=== PATIENT | male | born 1950 | race Caucasian/White ===

== ENCOUNTER 2020-06-15 19:23 | Inpatient (IN) | payer MEDICARE, SELFPAY ==
--- NOTE | 2020-07-14 00:06 | PDOC.HHP ---
Hospitalist HPI - History of Present Illness Shortness of breath History of Present Illness: Mr. Johnson is a 68-year-old male with a past medical history of hypertension, hyperlipidemia, type 2 diabetes mellitus, hypothyroidism, Covid pneumonia who presents for shortness of breath. Patient was recently admitted for COVID-19 pneumonia from June 15 through June 25 and was discharged on home oxygen. Patient reports that initially after his discharge he was doing well, however as he started to do more and more in the past few days activity smith he developed worsening shortness of breath and had to increase his oxygen level. He denies chest pain, fever, chills, myalgias. He states he otherwise feels fine. 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 In the emergency room at [place] initial vital signs 116/76, 70, 20, 94% on 3 L oxygen. Patient was initially 82% on room air. White blood cell count 8.3. Lactic acid 1.7. D-dimer elevated at 2.64. Troponin 0 0.001, BNP 17.1. Patient underwent CTA which was negative for PE but did show parenchymal disease consistent with COVID-19 pneumonia. Chest x-ray showed bilateral patchy infil trates also consistent with COVID-19 pneumonia. LFTs elevated 51/78, 168. Patient received Levaquin, Lovenox, cefepime, dexamethasone, aspirin at outside hospital. Patient transferred to [facility] for further treatment of his persistent Covid hypoxia. Hospitalist ROS - Review of Systems Constitutional: denies: fever, chills, sweats, weakness, malaise, other Eyes: denies: pain, vision change, conjunctivae inflammation, eyelid inflammation, redness, other ENT: denies: ear pain, ear discharge, nose pain, nose discharge, nose congestion, mouth pain, mouth swelling, throat pain, throat swelling, other Respiratory: reports: shortness of breath, SOB with excertion. denies: cough, dry, hemoptysis, pleuritic pain, sputum, wheezing, other Cardiovascular: denies: chest pain, palpitations, orthopnea, paroxysmal noc. dy spnea, edema, light headedness, other Gastrointestinal: denies: nausea, vomiting, abdominal pain, diarrhea, constipation, melena, hematochezia, other Genitourinary: denies: dysuria, frequency, incontinence, hematuria, retention, other Musculoskeletal: denies: neck pain, shoulder pain, arm pain, back pain, hand pain, leg pain, foot pain, other Skin: denies: rash, lesions, benjamin, bruising, other Neurological: denies: weakness, numbness, incoordination, change in speech, con fusion, seizures, other - Medication Medications: Home medications include Losartan hydrochlorothiazide Levothyroxine Aspirin Albuterol Oxygen Allergies to naproxen and lisinopril Hospitalist History - Past Medical History Other Medical History: Past medical history includes Hypertension Hyperlipidemia Hypothyroidism COVID-19 pneumonia infection Type 2 diabetes mellitus - Past Surgical History Other Surgical History: Past surgical history includes Tonsillectomy Cholecystectomy Knee injury repair - Family History Other Family History: Denies family history of cardiac or respiratory disease - Social History Smoking Status: Never smoker Alcohol: reports: None Drugs: reports: none Living Situation: With Family Activity level: independent ambulation - Exam General Appearance: NAD, awake alert General - other findings: Comfortable on 4 L nasal cannula Eye: PERRL, anicteric sclera ENT: normocephalic atraumatic, no oropharyngeal lesions, moist mucosa Neck: supple, symmetric, no JVD, no thyromegaly, no lymphadenopathy, no carotid bruit Heart: RRR, no murmur, no gallops, no rubs, normal peripheral pulses Respiratory: no wheezes, normal chest expansion, no tachypnea, normal percussion Respiratory - other findings: Rales at bases Gastrointestinal: soft, non-tender, non-distended, normal bowel sounds, no palpable masses, no hepatomegaly, no splenomegaly, no bruit Extremities: no cyanosis, no clubbing, no edema Skin: normal turgor, no lesions, no rashes Neurological: cranial nerve grossly intact, normal sensation to touch, no weakness, no focal deficits, no new deficit Musculoskeletal: normal tone, normal strength, no muscle wasting Psychiatric: normal affect, normal behavior, A&O x 3 Hospitalist H&P A/P - Plan Plan: Persistent hypoxia due to COVID-19 pneumonia 68-year-old male with past medical history of hypertension, hyperlipidemia, hypothyroidism with lingering COVID-19 pneumonia and hypoxia. Patient admitted June 15 through June 25 for Covid pneumonia and sent home on oxygen, however he presents for worsening hypoxia and shortness of breath. Chest x-ray stable from prior shows findings consistent with COVID-19 pneumonia as does CTA which was negative for PE. Patient's D-dimer elevated at 2.64. Lactic acid 1.7, WBC 8.3. 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 Question component of pneumonitis versus persistent hypoxia due to lingering COVID-19 pneumonia. Since it has been more than 10 days of symptom onset patient is no longer infectious and is no longer needs to continue airborne isolation. Plan Ceftriaxone, Azithromycin for question superimposed bacterial infection Continue dexamethasone Continue supplemental oxygen as needed -Trend inflammatory markers Consider ID or pulmonary consult Acute on chronic respiratory failure with hypoxia Patient with acute on chronic hypoxic respiratory failure secondary to moderate to severe COVID-19 pneumonia. Patient with worsening oxygen requirement now on 4 L of oxygen nasal cannula to maintain O2 sat. We will continue supplemental oxygen and closely monitor respiratory status. Treatment as above. Plan -Supplemental oxygen -Treatment as above -Closely monitor respiratory status Elevated LFTs LFTs elevated 51/178, alk phos 168. On review of records previously elevated. Suspect mild elevation in setting of COVID, however would have expected LFTs to have improved by now. Will obtain RUQUS and heptatitis panel. Plan -RUQUS -Hepatitis panel Hypertension Continue home medication Type 2 diabetes mellitus Patient on Metformin, however denies diabetes. Will hold Metformin and place on a [facility] glucose checks for now. Hypothyroidism Continue home levothyroxine once dosage confirmed DVT prophylaxisLovenox Full code MDM is patient's Case discussed with attending physician Dr. Schulz.
[2020-07-14] MEDS ORDERED: Acetaminophen 325 MG TAB PO PRN (00:13)
[2020-07-14] MEDS ORDERED: Acetaminophen 650 MG Suppository PR PRN (00:13)
[2020-07-14] MEDS ORDERED: Albuterol 200 PUFF (6.7GM INHALER) INH PRN (00:16)
[2020-07-14] MEDS ORDERED: Dextrose 5% in Water 1,000 ML IV PRN (00:16)
[2020-07-14] MEDS ORDERED: Dextrose 50% Abboject 50 ML SYRINGE SLOW IVP PRN (00:16)
[2020-07-14] MEDS ORDERED: cefTRIAXone\\ROCEPHIN 1 GM in Sodium Chloride 0.9% 100 ML IVPB SCH (01:00)
[2020-07-14] MEDS ORDERED: Azithromycin 500 MG in Sodium Chloride 0.9% 250 ML 250 ML IVPB SCH (02:00)
[2020-07-14 05:10] LABS: %Neutrophils 79.6 % (42.0-75.0); Hemoglobin 11.4 g/dL (14.0-18.0); Mean Corpuscular HGB CONC 32.5 g/dL (32.0-36.0); Mean Corpuscular Hemoglobin 30.8 pg (27.0-31.0); Mean Corpuscular Volume 94.8 fL (78.0-98.0); Platelet Count 278 thou/uL (130-400); RBC Distribution Width 12.3 % (11.5-14.5); White Blood Cell (WBC) Count 9.6 thou/uL (4.8-10.8)
[2020-07-14 05:11] LABS: #Eosinphils 0.1 thou/uL (0.0-0.7); #Lymphocytes 1.3 thou/uL (1.20-3.40); #Monocytes 0.6 thou/uL (0.11-0.59); #Neutrophils 7.7 thou/uL (1.40-6.50); %Basophils 0.2 % (0.0-1.0); %Eosinophils 0.7 % (0.0-10.0); %Lymphocytes 13.9 % (21.0-51.0); %Monocytes 5.7 % (0.0-10.0)
[2020-07-14] MEDS: Levothyroxine Sodium 100 MCG TAB PO SCH (05:24)
[2020-07-14 05:31] LABS: Anion Gap 13 mmol/L (10-20); BUN (Urea Nitrogen) 19 mg/dL (8.4-25.7); Calc. Creatinine Clearance 134 mL/min (70-130); Calcium 8.8 mg/dL (7.8-10.44); Carbon Dioxide 23 mmol/L (23-31); Chloride 105 mmol/L (98-107); Glucose 184 mg/dL (80-115); Potassium 3.6 mmol/L (3.5-5.1); Sodium 137 mmol/L (136-145)
[2020-07-14 05:35] LABS: Troponin I Less than 0.010 ng/mL (< 0.028)
[2020-07-14] MEDS: Guaifenesin DM 100-10/5 ML UDCUP PO PRN ×2 (06:01→20:05)
--- NOTE | 2020-07-14 07:34 | ULT ---
Ultrasound of [facility] upper quadrant: 07/14/2020 COMPARISON:None available HISTORY:Transaminitis TECHNIQUE: Multiplanar grayscale sonographic imaging of [facility] upper quadrant provided FINDINGS:Limited assessment of the pancreas secondary to obscuration by bowel gas. The hepatic parenchyma is heterogeneous and echogenic, limiting detailed assessment. Findings may be related to steatosis. Right kidney measures 11.5 cm in craniocaudal dimension and demonstrates no evidence for stone, hydro nephrosis, or mass. Cholecystectomy clips are noted on CT angiogram of the chest performed 07/13/2020. There are areas of increased echogenicity with shadowing within the gallbladder fossa suggesting shadowing from the postoperative clips and/or a calcified lesion within or adjacent to the liver in this region. The CT angiogram of the chest performed 07/13/2020 demonstrates a partially visualized rim calcified structure in the region of the gallbladder fossa which is not fully assessed on this exam or on the p rior CT. 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 The common bile duct measures 4 mm, within normal l imits. IMPRESSION:Areas of increased echogenicity with shadowing in the gallbladder fossa. The patient is st atus post cholecystectomy. This shadowing may be associated with postoperative clips as well as a rim calcified lesion which should be further assessed with CT of the abdomen with and without contras t using a hepatic mass protocol CODE T
[2020-07-14] MEDS ORDERED: FLU VACC QS2020-21(65YR UP)/PF 240 MCG/0.7 ML SYRINGE IM ONE (09:00)
[2020-07-14] MEDS: Enoxaparin Sodium 40 MG/0.4 ML SYRINGE SC SCH ×2 (09:02→20:05)
[2020-07-14] MEDS: Aspirin 325 mg Enteric Coated Tablet PO SCH (09:03)
[2020-07-14] MEDS: Losartan 25 MG TAB PO SCH (09:03)
[2020-07-14] MEDS: Hydrochlorothiazide 25 MG TAB PO SCH (09:03)
[2020-07-14] MEDS: Dexamethasone 4 MG TAB PO SCH (09:04)
--- NOTE | 2020-07-14 14:24 | PDOC.HOSPP ---
- Subjective Encounter Date: 07/14/20 Encounter Time: 11:30 Subjective: is on 3 lts nc and comfortable eating well, is amb in room (gets exertional sob easily) - Objective Vital Signs & Weight: Vital Signs (12 hours) Temp Pulse Resp BP Pulse Ox 07/14/20 10:57 97.7 F 73 20 99/55 L 93 L 07/14/20 07:22 97.9 F 65 18 110/65 95 07/14/20 04:13 97.9 F 70 17 109/56 L 92 L Weight Weight 221 lb 12.8 oz Result Diagrams: 07/14/20 04:55 07/14/20 04:55 Additional Labs: Accuchecks 07/14/20 07/14/20 10:55 01:26 POC Glucose 102 H 159 H Hospitalist ROS - Medication Medications: Active Medications Generic Name Dose Route Start Last Admin Trade Name Freq PRN Reason Stop Dose Admin Aspirin 325 mg 07/14/20 09:00 07/14/20 09:03 Aspirin 325 Mg Enteric Coated Tablet PO 325 mg DAILY DONNIE Administration Dexamethasone 6 mg 07/14/20 08:00 07/14/20 09:04 Dexamethasone 4 Mg Tab PO 6 mg QAM-WM DONNIE Administration Enoxaparin Sodium 40 mg 07/14/20 09:00 07/14/20 09:02 Enoxaparin Sodium 40 Mg/0.4 Ml Syringe SC 40 mg 0900,2100 DONNIE Administration Guaifenesin/Dextromethorphan 15 ml 07/14/20 00:13 07/14/20 06:01 Guaifenesin Dm 100-10/5 Ml Udcup PO 15 ml Q4H PRN Administration Cough Hydrochlorothiazide 25 mg 07/14/20 09:00 07/14/20 09:03 Hydrochlorothiazide 25 Mg Tab PO 25 mg DAILY DONNIE Administration Ceftriaxone Sodium 1 gm/ 100 mls @ 200 mls/hr 07/14/20 01:00 07/14/20 01:35 Sodium Chloride IVPB 100 mls 0100 DONNIE Administration Azithromycin 500 mg/ Sodium 250 mls @ 250 mls/hr 07/14/20 02:00 07/14/20 02:27 Chloride IVPB 250 mls 0200 DONNIE Administration Levothyroxine Sodium 100 mcg 07/14/20 06:00 07/14/20 05:24 Levothyroxine Sodium 100 Mcg Tab PO 100 mcg 0600 DONNIE Administration Losartan Potassium 100 mg 07/14/20 09:00 07/14/20 09:03 Losartan 25 Mg Tab PO 100 mg DAILY DONNIE Administration Sodium Chloride 10 ml 07/14/20 00:13 07/14/20 01:35 Flush - Normal Saline 10 Ml Syringe IVF 10 ml PRN PRN Administration Saline Flush - Exam General Appearance: awake alert Eye: PERRL, anicteric sclera ENT: no oropharyngeal lesions, moist mucosa Neck: supple, no JVD Heart: RRR, no murmur Respiratory: no wheezes, rales, rhonchi Gastrointestinal: soft, non-tender, non-distended, normal bowel sounds Extremities: no cyanosis, no edema Neurological: cranial nerve grossly intact, no focal deficits Psychiatric: normal affect, A&O x 3 Hosp A/P (1) Pneumonia due to COVID-19 virus Code(s): U07.1 - COVID-19; J12.89 - OTHER VIRAL PNEUMONIA Status: Acute (2) Acute respiratory failure with hypoxia Code(s): J96.01 - ACUTE RESPIRATORY FAILURE WITH HYPOXIA Status: Acute (3) HTN (hypertension) Code(s): I10 - ESSENTIAL (PRIMARY) HYPERTENSION Status: Chronic Qualifiers: Hypertension type: essential hypertension Qualified Code(s): I10 - E ssential (primary) hypertension (4) DM type 2 (diabetes mellitus, type 2) Status: Chronic Qualifiers: Diabetes mellitus supervisor intermediates insulin use: without supervisor intermediates use (5) Hypothyroidism Code(s): E03.9 - HYPOTHYROIDISM, UNSPECIFIED Status: Chronic Qualifiers: Hypothyroidism type: acquired Qualified Code(s): E03.9 - Hypothyroidism, unspecified - Plan is on 3 lts NC, dexamethasone. Was hospitalized here for covid pna from jun 15 - , consult is on ceftriaxone and zithromax, nebs crp is 8, ferritin is 2200 on asp, cozaar, hctz, synthroid, lovenox 40mg sc q12h has severe infiltrates on cxr he has 2 medical record numbers and the [facility] records need to be fixed
--- NOTE | 2020-07-14 18:51 | CON ---
DATE OF CONSULTATION: 07/14/2020 REASON FOR CONSULTATION: Readmission after recent COVID-19 treatment in the hospital. HISTORY OF PRESENT ILLNESS: A 70-year-old patient who has a history of hypertension and hypothyroidism and was admitted on 06/15 complaining of cough and congestion for 14 days, 2 weeks before he tested negative. His had tested positive. On arrival, he was feeling relatively well other than cough and fatigue. His BP was normal, his T-max 99.2, and O2 saturations were 89% on room air. He had a chest x-ray, which showed bilateral diffuse infiltrates. He had a CT from [facility], which showed COVID type pneumonia. I do not have the results of that CT here. He was given remdesivir and Decadron and he remained about 10 days in the hospital, eventually was discharged to finish his Decadron course on oxygen supplementation 2 L at home. He acknowledges that after a while stopped using oxygen during the daytime, only using at nighttime to sleep and he has a pulse oximeter at home and had measured it a few times, and according to him, it went down to 88 to 87 while his 's oximetry concomitantly was 97. So, he really developed significant hypoxemia without oxygen supplementation. For some reason, he just kept not using oxygen supplementation during the daytime and basically he got fatigued and short of breath and ended up in the [place] [facility] where he was found to be obviously hypoxemic and dyspneic. He had a CT, which showed diffuse bilateral infiltrates, which probably had been present all along and his BP was 101/56, temperature 98, and O2 saturation was 93 on 3 L of oxygen supplementation, so he was put in the hospital and he is currently receiving azithromycin, albuterol, ceftriaxone, Decadron, levothyroxine, losartan, and mometasone. Mr. Stover is awake in bed, he does not appear to be in distress. Sometimes he will start coughing intermittently and gets a little bit tachypneic, but most of the time he is in no respiratory distress and feeling comfortable at rest. He denies headaches. No sore throat, odynophagia, or dysphagia. No sputum production. No nasal symptoms. No abdominal pain or diarrhea. No genitourinary symptoms. No chest pain. No joint symptoms or skin disorder. PAST MEDICAL HISTORY: 1. Hypertension. 2. Hypothyroidism. 3. COVID-19, diagnosed beginning of June and with a 10-day hospital stay where he got remdesivir and Decadron. 4. He also has a history of hyperlipidemia. 5. Type 2 diabetes. SURGICAL HISTORY: 1. Tonsillectomy. 2. Cholecystectomy. 3. Knee injury repair. FAMILY HISTORY: Noncontributory except for COVID-19 in the . SOCIAL HISTORY: Never smoker. He lives in [place] in a farm. Does not drink. MEDICATIONS: He is currently on Rocephin. PHYSICAL EXAMINATION: VITAL SIGNS: Current vital signs; he has been afebrile, saturating 95 on 3 L, 94 to 95 after coughing and standing up, sometimes goes down to 92, but most of the time will stay around 94. His BP 107/61. He is breathing about 18 times a minute. SKIN: Normal. No lymphadenopathy. HEENT: Normal. LUNGS: With scattered inspiratory crackles. HEART: S1 and S2. Regular rate. ABDOMEN: Soft, not distended or tender. No ascites. No bladder distention. EXTREMITIES: No joint inflammatory activity. NEUROLOGIC: Nonfocal. LABORATORY DATA: WBC count 9.6, hemoglobin 11.4, platelets 278, and 79% neutrophils. Creatinine 0.77. LDH 315. CRP 8.47. Ferritin is 2100. He had abdominal ultrasound done, not clear reason for it because the patient denies any pain in the abdominal area. The abdomen ultrasound is not particularly remarkable. ASSESSMENT: 1. Hypertension. 2. Hyperlipidemia. 3. Type 2 diabetes. 4. COVID-19, treated recently during 10 days in the hospital with remdesivir and Decadron, now with persistence of hypoxemia and a CT showing diffuse bilateral pneumonitis or pneumonia with what is the aftermath of the recent COVID-19 pneumonia. DISCUSSION: The most likely scenario here is that the patient has what is called the aftermath of the COVID-infection and SARS-CoV-2 infection with diffuse organizing pneumonia and the problem is that the patient was not clearly instructed to continue using oxygen 24 hours a day until told not to do so according to results of challenges and measurement of oximetry. Obviously, his oximetry was not adequate at home and he still kept not using oxygen, which led to decompensation that prompted readmission. I do not think he has any need for Rocephin or azithromycin. We may continue the Decadron a little longer, but probably he is just going to need time for this to resolve and he is going to have to be wearing oxygen 24 hours a day until this improves further. It may take a month or 2 as a matter of fact. The titration of the oxygen supplementation at home will have to be carried out under supervision of a physician rather than on his own account. The other possibilities would be cardiomyopathy and we will go ahead and check his echocardiogram and thromboembolism has been ruled out. Job ID: [id number]
[2020-07-14] MEDS: Mometasone 200 MCG/Formoterol 5 MCG 120 PUFF INHALER INH SCH (22:12)
[2020-07-15] MEDS: Levothyroxine Sodium 100 MCG TAB PO SCH (05:59)
[2020-07-15 06:34] LABS: #Basophils 0.1 thou/uL (0.0-0.2); #Eosinphils 0.2 thou/uL (0.0-0.7); #Lymphocytes 2.1 thou/uL (1.20-3.40); #Monocytes 0.9 thou/uL (0.11-0.59); #Neutrophils 8.7 thou/uL (1.40-6.50); %Basophils 0.5 % (0.0-1.0); %Eosinophils 1.5 % (0.0-10.0); %Monocytes 7.5 % (0.0-10.0); %Neutrophils 72.5 % (42.0-75.0); Hemoglobin 11.8 g/dL (14.0-18.0); Mean Corpuscular HGB CONC 33.8 g/dL (32.0-36.0); Mean Corpuscular Hemoglobin 32.3 pg (27.0-31.0); Mean Corpuscular Volume 95.6 fL (78.0-98.0); Mean Platelet Volume 6.8 fL (7.4-10.4); Platelet Count 314 thou/uL (130-400); RBC Distribution Width 12.4 % (11.5-14.5); Red Blood Cell (RBC) Count 3.64 mill/uL (4.70-6.10); White Blood Cell (WBC) Count 11.9 thou/uL (4.8-10.8)
[2020-07-15 06:54] LABS: Anion Gap 15 mmol/L (10-20); BUN (Urea Nitrogen) 20 mg/dL (8.4-25.7); Calc. Creatinine Clearance 124 mL/min (70-130); Calcium 9.3 mg/dL (7.8-10.44); Carbon Dioxide 26 mmol/L (23-31); Chloride 103 mmol/L (98-107); Glucose 96 mg/dL (80-115); Potassium 3.9 mmol/L (3.5-5.1); Sodium 140 mmol/L (136-145)
[2020-07-15] MEDS: Dexamethasone 4 MG TAB PO SCH (08:35)
[2020-07-15] MEDS: Hydrochlorothiazide 25 MG TAB PO SCH (08:36)
[2020-07-15] MEDS: Losartan 25 MG TAB PO SCH (08:36)
[2020-07-15] MEDS: Aspirin 325 mg Enteric Coated Tablet PO SCH (08:36)
[2020-07-15] MEDS: Enoxaparin Sodium 40 MG/0.4 ML SYRINGE SC SCH ×2 (08:37→20:51)
[2020-07-15] MEDS: Mometasone 200 MCG/Formoterol 5 MCG 120 PUFF INHALER INH SCH ×2 (08:37→18:30)
--- NOTE | 2020-07-15 14:36 | PDOC.HOSPP ---
- Subjective Encounter Date: 07/15/20 Encounter Time: 12:00 Subjective: no new complaints, is on 3 lts nc and comfortable gets sob on minimal exertion - Objective Vital Signs & Weight: Vital Signs (12 hours) Temp Pulse Resp BP BP Pulse Ox 07/15/20 12:05 98.3 F 66 16 102/65 95 07/15/20 08:30 95 07/15/20 07:10 97.9 F 57 L 16 130/83 95 07/15/20 06:02 94 L 07/15/20 04:00 97.6 F 70 20 112/75 94 L 07/15/20 02:46 96 Weight Weight 221 lb 12.8 oz I&O: 07/14/20 07/15/20 07/16/20 06:59 06:59 06:59 Intake Total 1080 Balance 1080 Result Diagrams: 07/15/20 06:27 07/15/20 06:27 Additional Labs: Accuchecks 07/14/20 16:43 POC Glucose 137 H Hospitalist ROS - Medication Medications: Active Medications Generic Name Dose Route Start Last Admin Trade Name Freq PRN Reason Stop Dose Admin Aspirin 325 mg 07/14/20 09:00 07/15/20 08:36 Aspirin 325 Mg Enteric Coated Tablet PO 325 mg DAILY DONNIE Administration Enoxaparin Sodium 40 mg 07/14/20 09:00 07/15/20 08:37 Enoxaparin Sodium 40 Mg/0.4 Ml Syringe SC 40 mg 0900,2100 DONNIE Administration Guaifenesin/Dextromethorphan 15 ml 07/14/20 00:13 07/14/20 20:05 Guaifenesin Dm 100-10/5 Ml Udcup PO 15 ml Q4H PRN Administration Cough Hydrochlorothiazide 25 mg 07/14/20 09:00 07/15/20 08:36 Hydrochlorothiazide 25 Mg Tab PO 25 mg DAILY DONNIE Administration Levothyroxine Sodium 100 mcg 07/14/20 06:00 07/15/20 05:59 Levothyroxine Sodium 100 Mcg Tab PO 100 mcg 0600 DONNIE Administration Losartan Potassium 100 mg 07/14/20 09:00 07/15/20 08:36 Losartan 25 Mg Tab PO 100 mg DAILY DONNIE Administration Mometasone Furoate/Formoterol Fumar 2 puff 07/14/20 18:30 07/15/20 08:37 Mometasone 200 Mcg/Formoterol 5 Mcg 120 Puff Inhaler INH 2 puff BID-RT DONNIE Administration Sodium Chloride 10 ml 07/14/20 00:13 07/14/20 01:35 Flush - Normal Saline 10 Ml Syringe IVF 10 ml PRN PRN Administration Saline Flush - Exam General Appearance: awake alert Eye: PERRL, anicteric sclera ENT: no oropharyngeal lesions, moist mucosa Neck: supple, no JVD Heart: RRR, no murmur Respiratory: no wheezes, rales, rhonchi Gastrointestinal: soft, non-tender, non-distended, normal bowel sounds Extremities: no cyanosis, no edema Neurological: cranial nerve grossly intact, no focal deficits Psychiatric: normal affect, A&O x 3 Hosp A/P (1) Pneumonia due to COVID-19 virus Code(s): U07.1 - COVID-19; J12.89 - OTHER VIRAL PNEUMONIA Status: Acute (2) Acute respiratory failure with hypoxia Code(s): J96.01 - ACUTE RESPIRATORY FAILURE WITH HYPOXIA Status: Acute (3) HTN (hypertension) Code(s): I10 - ESSENTIAL (PRIMARY) HYPERTENSION Status: Chronic Qualifiers: Hypertension type: essential hypertension Qualified Code(s): I10 - Essential (primary) hypertension (4) DM type 2 (diabetes mellitus, type 2) Status: Chronic Qualifiers: Diabetes mellitus ferry terminal supervisor insulin use: without [facility] use (5) Hypothyroidism Code(s): E03.9 - HYPOTHYROIDISM, UNSPECIFIED Status: Chronic Qualifiers: Hypothyroidism type: acquired Qualified Code(s): E03.9 - Hypothyroidism, unspecified - Plan is on 3 lts NC, dexamethasone. Was hospitalized here for covid pna from jun 15 - and got remdesivir. crp is 8, ferritin is 2200 on asp, cozaar, hctz, synthroid, lovenox 40mg sc q12h has severe infiltrates on cxr he has 2 medical record numbers and the [facility] records need to be fixed echo, dc plan in am if stable on 3 lts NC he needs close f/u with PCP and I have discussed with over phone and gave full updates on 07/14, 07/2020.
--- NOTE | 2020-07-15 14:59 | CON ---
DATE OF CONSULTATION: HISTORY OF PRESENT ILLNESS: A 70-year-old gentleman was recently discharged from the hospital, prolonged hospitalization with sahu positive pneumonia. He now presents with worsening shortness of breath and cough. His sats in the ER were apparently 82% on room air and 94% on 3 L. MEDICATIONS: His home medicines include: 1. Albuterol inhaler. 2. Dulera. 3. Ecotrin. 4. Metformin. 5. Losartan 100. 6. Synthroid 125. ALLERGIES: HE IS ALLERGIC TO LEXAPRO AND NAPROSYN. PAST MEDICAL HISTORY: 1. Hypertension. 2. Hypothyroidism. 3. Diabetes. PREVIOUS SURGERIES: 1. Tonsils. 2. Gallbladder. 3. Knee surgery. REVIEW OF SYSTEMS: Otherwise negative. PHYSICAL EXAMINATION: VITAL SIGNS: Temperature 98, pulse 60, respiratory rate 16, sats 95% on 3 L, and blood pressure 102/65. LUNGS: Crackles bilaterally. CARDIAC: Normal S1 and S2. No gallops. ABDOMEN: No masses. ASSESSMENT: Sahu positive pneumonia with residual scarring, started on steroids, Dulera, neb treatments, supportive care. We will follow. TIME SPENT: Consultation note is 70 minutes, 50% in direct patient care. Job ID: [id number]
[2020-07-15] MEDS: Doxycycline 100 MG CAP PO SCH (20:51)
[2020-07-15] MEDS: predniSONE 20 MG TAB PO SCH (20:51)
[2020-07-16] MEDS: Ipratropium/Albuterol Sulfate 4 GM AER IH SCH ×6 (00:09→23:19)
[2020-07-16] MEDS: Mometasone 200 MCG/Formoterol 5 MCG 120 PUFF INHALER INH SCH ×2 (05:31→19:17)
[2020-07-16] MEDS: Levothyroxine Sodium 100 MCG TAB PO SCH (05:31)
[2020-07-16 06:29] LABS: #Eosinphils 0.3 thou/uL (0.0-0.7); #Lymphocytes 1.8 thou/uL (1.20-3.40); #Monocytes 0.9 thou/uL (0.11-0.59); #Neutrophils 9.4 thou/uL (1.40-6.50); %Basophils 0.2 % (0.0-1.0); %Eosinophils 2.6 % (0.0-10.0); %Lymphocytes 14.6 % (21.0-51.0); %Neutrophils 75.6 % (42.0-75.0); Hemoglobin 11.7 g/dL (14.0-18.0); Mean Corpuscular HGB CONC 32.9 g/dL (32.0-36.0); Mean Corpuscular Hemoglobin 31.1 pg (27.0-31.0); Mean Corpuscular Volume 94.7 fL (78.0-98.0); Mean Platelet Volume 7.4 fL (7.4-10.4); Platelet Count 386 thou/uL (130-400); RBC Distribution Width 12.3 % (11.5-14.5); Red Blood Cell (RBC) Count 3.76 mill/uL (4.70-6.10); White Blood Cell (WBC) Count 12.4 thou/uL (4.8-10.8)
[2020-07-16 06:48] LABS: Anion Gap 14 mmol/L (10-20); BUN (Urea Nitrogen) 21 mg/dL (8.4-25.7); Calc. Creatinine Clearance 131 mL/min (70-130); Calcium 9.1 mg/dL (7.8-10.44); Carbon Dioxide 24 mmol/L (23-31); Chloride 104 mmol/L (98-107); Glucose 112 mg/dL (80-115); Potassium 4.3 mmol/L (3.5-5.1); Sodium 138 mmol/L (136-145)
[2020-07-16] MEDS: Doxycycline 100 MG CAP PO SCH ×2 (09:23→22:22)
[2020-07-16] MEDS: Enoxaparin Sodium 40 MG/0.4 ML SYRINGE SC SCH ×2 (09:23→22:23)
[2020-07-16] MEDS: predniSONE 20 MG TAB PO SCH ×2 (09:23→22:22)
[2020-07-16] MEDS: Losartan 25 MG TAB PO SCH (09:23)
[2020-07-16] MEDS: Aspirin 325 mg Enteric Coated Tablet PO SCH (09:23)
[2020-07-16] MEDS: Hydrochlorothiazide 25 MG TAB PO SCH (09:23)
--- NOTE | 2020-07-16 13:09 | PRG ---
DATE OF SERVICE: 07/16/2020 SUBJECTIVE: Michael Stover is doing better this morning, less short of breath, less cough. OBJECTIVE: VITAL SIGNS: Temperature respirations 18, saturations 95% apparently on room air, blood pressure . CHEST: Bilateral crackles. CARDIAC: Normal S1, S2. No gallops. ABDOMEN: No mass. ASSESSMENT: Status post prolonged hospitalization with sahu positive pneumonia with secondary residual fibrosis, respiratory failure. PLAN: X-ray being ordered. Continue doxy, steroids. We will follow. Job ID: [id number]
--- NOTE | 2020-07-16 21:12 | PDOC.HOSPP ---
- Subjective Encounter Date: 07/16/20 Encounter Time: 14:00 Subjective: Patient seen and examined for respiratory failure due to COVID 19. Shortness of breath improving. Denies any new complaints. - Objective Vital Signs & Weight: Vital Signs (12 hours) Temp Pulse Resp BP Pulse Ox 07/16/20 20:00 98.5 F 58 L 20 130/86 96 07/16/20 19:17 70 16 92 L Weight Weight 221 lb 12.8 oz I&O: 07/15/20 07/16/20 07/17/20 06:59 06:59 06:59 Intake Total 1080 1350 Balance 1080 1350 Result Diagrams: 07/16/20 05:59 07/16/20 05:59 Additional Labs: Abnormal Lab Results - Last 48 hrs 07/15/20 06:27: WBC 11.9 H, RBC 3.64 L, Hgb 11.8 L, Hct 34.8 L, MCH 32.3 H, MPV 6.8 L, Lymphocytes % 18.0 L, Neutrophils # 8.7 H, Monocytes # 0.9 H 07/16/20 05:59: WBC 12.4 H, RBC 3.76 L, Hgb 11.7 L, Hct 35.7 L, MCH 31.1 H, Neutrophils % 75.6 H, Lymphocytes % 14.6 L, Neutrophils # 9.4 H, Monocytes # 0.9 H Microbiology - Entire Visit 07/16/20 05:40 Sputum Respiratory Culture - Final 07/15/20 19:18 Sputum Respiratory Culture - Final Radiology Reviewed by me: Yes (Chest x-raypneumonia) Hospitalist ROS - Review of Systems Cardiovascular: denies: chest pain, palpitations, orthopnea, paroxysmal noc. dyspnea, edema, light headedness, other Gastrointestinal: denies: nausea, vomiting, abdominal pain, diarrhea, constipation, melena, hematochezia, other - Medication Medications: Active Medications Generic Name Dose Route Start Last Admin Trade Name Freq PRN Reason Stop Dose Admin Albuterol/Ipratropium 0 gm 07/15/20 19:00 07/16/20 19:16 Ipratropium/Albuterol Sulfate 4 Gm Aer IH 1 puff [id number] DONNIE Administration Aspirin 325 mg 07/14/20 09:00 07/16/20 09:23 Aspirin 325 Mg Enteric Coated Tablet PO 325 mg DAILY DONNIE Administration Doxycycline Hyclate 100 mg 07/15/20 21:00 07/16/20 09:23 Doxycycline 100 Mg Cap PO 07/25/20 21:01 100 mg BID DONNIE Administration Enoxaparin Sodium 40 mg 07/14/20 09:00 07/16/20 09:23 Enoxaparin Sodium 40 Mg/0.4 Ml Syringe SC 40 mg 0900,2100 DONNIE Administration Guaifenesin/Dextromethorphan 15 ml 07/14/20 00:13 07/14/20 20:05 Guaifenesin Dm 100-10/5 Ml Udcup PO 15 ml Q4H PRN Administration Cough Hydrochlorothiazide 25 mg 07/14/20 09:00 07/16/20 09:23 Hydrochlorothiazide 25 Mg Tab PO 25 mg DAILY DONNIE Administration Levothyroxine Sodium 100 mcg 07/14/20 06:00 07/16/20 05:31 Levothyroxine Sodium 100 Mcg Tab PO 100 mcg 0600 DONNIE Administration Losartan Potassium 100 mg 07/14/20 09:00 07/16/20 09:23 Losartan 25 Mg Tab PO 100 mg DAILY DONNIE Administration Mometasone Furoate/Formoterol Fumar 2 puff 07/14/20 18:30 07/16/20 19:17 Mometasone 200 Mcg/Formoterol 5 Mcg 120 Puff Inhaler INH 2 puff BID-RT DONNIE Administration Prednisone 20 mg 07/15/20 21:00 07/16/20 09:23 Prednisone 20 Mg Tab PO 20 mg BID DONNIE Administration Sodium Chloride 10 ml 07/14/20 00:13 07/14/20 01:35 Flush - Normal Saline 10 Ml Syringe IVF 10 ml PRN PRN Administration Saline Flush - Exam General Appearance: awake alert Neck: supple, no JVD Heart: RRR, no gallops, no rubs Respiratory: no wheezes, rales, rhonchi Gastrointestinal: soft, non-tender, normal bowel sounds Extremities: no cyanosis Neurological: no new deficit Hosp A/P - Plan DVT proph w/lovenox, DVT proph w/SCDs Acute hypoxic respiratory failure due to COVID-19 pneumonia Hypertension Hypothyroidism Diabetes mellitus type 2 Obesity with a BMI 32.7 Plan: Case discussed with pulmonary Dr. Brown. Will continue doxycycline with nebulizer treatments. Continue Dulera. Continue prednisone per pulmonary. Recheck chest x-ray in a.m. Continue other medications as above
[2020-07-17] MEDS: Levothyroxine Sodium 100 MCG TAB PO SCH (05:20)
[2020-07-17 06:47] LABS: ALT (SGPT) 56 U/L (8-55); AST (SGOT) 31 U/L (5-34); Albumin 3.6 g/dL (3.4-4.8); Alkaline Phosphatase 134 U/L (40-110); Anion Gap 15 mmol/L (10-20); BUN (Urea Nitrogen) 19 mg/dL (8.4-25.7); Bilirubin, Total 0.5 mg/dL (0.2-1.2); CRP (Inflammatory) 1.34 mg/dL (= or < 0.5); Calc. Creatinine Clearance 126 mL/min (70-130); Calcium 9.6 mg/dL (7.8-10.44); Carbon Dioxide 25 mmol/L (23-31); Chloride 103 mmol/L (98-107); Globulin 3.6 g/dL (2.4-3.5); Glucose 108 mg/dL (80-115); Hemoglobin 12.8 g/dL (14.0-18.0); Mean Corpuscular HGB CONC 32.8 g/dL (32.0-36.0); Mean Corpuscular Hemoglobin 31.4 pg (27.0-31.0); Mean Corpuscular Volume 95.7 fL (78.0-98.0); Mean Platelet Volume 7.3 fL (7.4-10.4); Platelet Count 441 thou/uL (130-400); Potassium 4.7 mmol/L (3.5-5.1); Protein, Total 7.2 g/dL (5.8-8.1); RBC Distribution Width 12.6 % (11.5-14.5); Red Blood Cell (RBC) Count 4.07 mill/uL (4.70-6.10); Sodium 138 mmol/L (136-145); White Blood Cell (WBC) Count 12.5 thou/uL (4.8-10.8)
[2020-07-17 07:09] LABS: Band 4 % (5-11); Eosinophils 2 % (0-10); Lymphocytes 14 % (21-51); MDiff Complete? YES; Metamyelocyte 2 % (0-0); Monocytes 7 % (0-10); Myelocyte 5 % (0-0); Neutrophil 66 % (42-75); Nucleated RBC 1 % (0)
[2020-07-17] MEDS: Ipratropium/Albuterol Sulfate 4 GM AER IH SCH (07:23)
[2020-07-17] MEDS: Mometasone 200 MCG/Formoterol 5 MCG 120 PUFF INHALER INH SCH (07:25)
[2020-07-17] MEDS: Losartan 25 MG TAB PO SCH (08:44)
[2020-07-17] MEDS: Enoxaparin Sodium 40 MG/0.4 ML SYRINGE SC SCH (08:44)
--- NOTE | 2020-07-17 08:44 | RAD ---
Chest one view HISTORY: Pneumonia. Follow-up. COMPARISON: 07/13/2020. FINDINGS: Cardiac silhouette unremarkable. Pulmonary vasculature favored to be within normal limits. Widespread reticulonodular interstitial prominence and subtle ill-defined patchy areas of infiltrate within the left upper lobe and right lower lobe are similar in appearance to the prior exam. Mediastinum is midline. Calcification of the aorta. No evidence of pneumothorax. Postoperative changes left shoulder. IMPRESSION : Subtle bilateral infiltrates, widespread reticulonodular interstitial prominence, and other findings are stable.
[2020-07-17] MEDS: Hydrochlorothiazide 25 MG TAB PO SCH (08:45)
[2020-07-17] MEDS: predniSONE 20 MG TAB PO SCH (08:45)
[2020-07-17] MEDS: Aspirin 325 mg Enteric Coated Tablet PO SCH (08:45)
[2020-07-17] MEDS: Doxycycline 100 MG CAP PO SCH (08:45)
--- NOTE | 2020-07-17 12:11 | PRG ---
DATE OF SERVICE: 07/17/2020 OBJECTIVE: VITAL SIGNS: Temperature 97, respiratory rate 20, sats 2 L, and blood pressure 139/69. GENERAL: He is awake, alert, and responsive. Slight cough, but really no much shortness of breath. LABORATORY DATA: White count is unremarkable. Lytes are normal. C-reactive protein 1.34. IMPRESSION: Parmar positive status with residual scarring, cough. PLAN: He could be discharged home on low-flow O2 and inhaled like Symbicort 160/4.5 two puffs twice a day. Steroids should be tapered slowly over 2 weeks. Job ID: [id number]
[2020-07-17 15:34] VITALS: BP 115/67; TEMP 97.4
--- NOTE | 2020-07-18 07:58 | PDOC.DS.DS ---
Provider - Provider Date of Admission: 07/14/20 00:13 Date of Discharge: 07/17/20 Admitting Provider: Zeferino Schulz MD Consultations: Infectious Disease, Pulmonary Primary Care Physician: Aaron Koo MD Course - Hospital Course Hospital Course: Patient is a 68-year-old male with recent COVID-19 pneumonia with respiratory failure requiring O2 supplementation presented to the emergency room on 07/14 with shortness of breath despite home oxygen. Please refer to the history and physical dated 07/14 for further details The patient was admitted to the hospital with diagnosis of acute hypoxic respiratory failure due to COVID-19 pneumonia. He was started on O2 supplementation with steroids, antibiotics as well as nebulizer treatments. His symptoms gradually improved. Echocardiogram showed ejection fraction 50 to 55% with mild to moderate tricuspid regurgitation and mild pulmonary regurgitation. Repeat chest x-ray on 07/17 showed stable findings. Patient was evaluated by infectious disease as well as pulmonary. Patient has been cleared by above consultants. He appears stable for discharge and understands the above plan of care. Final diagnosis: Acute hypoxic respiratory failure due to COVID-19 pneumonia Hypertension Hypothyroidism Diabetes mellitus type 2 Obesity with a BMI 32.7 Resuscitation Status: 07/14/20 00:13 Resuscitation Status Routine Co-Sign Provider: Resuscitation Status: FULL: Full Resuscitation - Labs Lab Results: 07/17/20 05:36 07/17/20 05:36 Abnormal Lab Results - Last 48 hrs 07/17/20 05:36: WBC 12.5 H, RBC 4.07 L, Hgb 12.8 L, Hct 39.0 L, MCH 31.4 H, Plt Count 441 H, MPV 7.3 L, Band Neuts % (Manual) 4 L, Lymphocytes % (Manual) 14 L, Myelocytes % 5 H, Nucleated RBCs # (Man) 1 H 07/17/20 05:36: ALT 56 H, Alkaline Phosphatase 134 H, C-Reactive Protein 1.34 H, Globulin 3.6 H, Albumin/Globulin Ratio 1.0 L 07/17/20 05:36: Ferritin 1484.43 H Microbiology - Entire Visit 07/16/20 05:40 Sputum Respiratory Culture - Final 07/15/20 19:18 Sputum Respiratory Culture - Final - Physical Exam Vitals: Weight Weight 221 lb 12.8 oz Physical Exam: The patient was seen and examined on the day of discharge. Plan - Discharge Medications Prescriptions: Famotidine [Pepcid] 20 mg PO BID #30 tab predniSONE 20 mg PO ASDIR #17 tab Doxycycline [Vibramycin] 100 mg PO BID #10 cap Home Medications: Medication Instructions Recorded Confirmed Type Albuterol Sulfate [Proventil Hfa] 2 puff INH Q2H PRN 07/13/20 07/13/20 History Aspirin [Ecotrin Regular Strength] 325 mg PO DAILY 07/13/20 07/13/20 History Hydrochlorothiazide 25 mg PO DAILY 07/13/20 07/13/20 History Levothyroxine Sodium [Synthroid] 100 mcg PO DAILY 07/13/20 07/13/20 History Losartan Potassium [Cozaar] 100 mg PO DAILY 07/13/20 07/13/20 History Mometasone/Formoterol 200/5 2 puff INH BID 07/13/20 07/13/20 History [Dulera 200 Mcg/5 Mcg Inhaler] metFORMIN HCl [Metformin HCl ER] 500 mg PO DAILY 07/13/20 07/13/20 History Doxycycline [Vibramycin] 100 mg PO BID #10 cap 07/17/20 Rx Famotidine [Pepcid] 20 mg PO BID #30 tab 07/17/20 Rx predniSONE 20 mg PO ASDIR #17 tab 07/17/20 Rx Allergies: naproxen [From Aleve] Allergy (Verified 07/13/20 23:03) Hives lisinopril Adverse Reaction (Verified 07/13/20 23:06) COUGH - Follow up Plan Referrals: Laci Brown MD [Active] - 14 Days Roddy Mercedes MD [Active] - 7 Days Rony Nelson MD [Active] - 10 Days Disposition: HOME Quality - Care Measures CORE MEASURES:: N/A
--- NOTE | 2020-07-19 06:08 | PQF ---
CLINICAL DOCUMENTATION CLARIFICATION FORM: Dear : Mateusz Ly Date / Time: 07/19/20 0605 Please exercise your independent, professional judgment in responding to the clarification form. Clinical indicators are provided on the bottom of this form for your review COVID 19 Clarification and Manifestations: Please check appropriate box(es): A. COVID 19 virus diagnosis Validation: [ x ] COVID-19 Pneumonia is ruled in (if so, please provide the evidence used to support this diagnosis) [ ] COVID-19 Pneumonia has been ruled out [ ] History of COVID19 only [ ] Other explanation of clinical findings [ ] Unable to determine Physician Signature: Date/Time: For continuity of documentation, please document condition throughout progress notes and discharge summary. Thank You To be completed by CDI/Coding staff for physician review: Present Clinical Indicators - Signs / Symptoms / Labs Results and Location in Medical Record [x] Chest X-ray Impression: Suntle bilateral infiltrates, widespread reticuynodular inertitial promince Imaging Dr Brenner 07/17 [x] BP 93/64, Pulse 72, Resp 20, Temp 97.8 Vital signs 07/13 [x] Malaised, generalized weakness H&P p1 07/14 Nikolay OLIVER [x] Hx of Covid 19 pneumona form Jun 15- H&P p1 07/14 Nikolay OLIVER [x] Recent Covid Consult Dr Nelson 07/14 [x] The most likley scenario here is that the pt has what is called aftermath of covid 19 infection with diffuse organizing pneumonia Consult Dr Nelson 07/14 Present Risk Factors Results and Location in Medical Record [x] 68 years old male HP 07/14 [x] DM HP 07/14 [x] Pulmonary fibrosis PN 07/16 [x] Obesity PN 07/16 Present Treatments Results and Location in Medical Record [x] IV Zithromax 500 mg oral SEP 23 [x] Decadron 4 mg oral SEP 23 [x] IVF NS 1L SEP 23 [x] Pulmonology Consult Consult 07/15 [x] Oxygen via [place] PN 07/14 [x] Rocephin 1gm IV SEP 23 [x] Doxycycline 100mg Oral SEP 12 [facility] Signature: Betty Beyer Phone #: [phone] Date/Time: 07/19/20604 This is a permanent part of the Medical Record [facility]
== END 2020-07-17 14:42 | disposition home or self-care (01) | DRG 177 ==
LOC: 2SW 19:23 → UNDOADMIN 19:23 → 2SW 07-13 21:47 → MERGE 07-14 00:13 → OBSVTOIN 07-14 00:13 → EDBD 07-14 00:13 → T4-B 07-15 01:25
PROVIDERS: ADMIT Internal Medicine; ATTEND Internal Medicine
DX: U07.1 COVID-19 (principal); J96.21 Acute and chronic respiratory failure with hypoxia; J12.82 Pneumonia due to coronavirus disease 2019; I10 Essential (primary) hypertension; E03.9 Hypothyroidism, unspecified; E11.9 Type 2 diabetes mellitus without complications; E66.9 Obesity, unspecified; R94.5 Abnormal results of liver function studies; E78.5 Hyperlipidemia, unspecified; J84.10 Pulmonary fibrosis, unspecified; Z68.32 Body mass index [BMI] 32.0-32.9, adult; Z28.21 Immunization not carried out because of patient refusal; Z88.8 Allergy status to other drugs, medicaments and biological substances; Z79.899 Other long term (current) drug therapy; Z79.890 Hormone replacement therapy; Z79.82 Long term (current) use of aspirin; Z99.81 Dependence on supplemental oxygen; Z90.49 Acquired absence of other specified parts of digestive tract; Z79.84 Long term (current) use of oral hypoglycemic drugs
CPT/HCPCS: 36415; 36416; 71046; 76705; 80048; 80053; 82728; 83615; 84484; 85025; 85652; 86140; 87070; 87205; 93306; J0456; J0696; J1650; J3490; J7050; J7512; J8540

== ENCOUNTER 2020-06-15 20:26 | Inpatient (IN) | payer MEDICARE ==
[2020-06-15] MEDS ORDERED: Bisacodyl 5 MG TAB PO PRN (21:08)
[2020-06-15] MEDS ORDERED: Acetaminophen 325 MG TAB PO PRN (21:08)
[2020-06-15] MEDS ORDERED: Ondansetron ODT 4 MG TAB PO PRN (21:08)
[2020-06-15] MEDS ORDERED: Melatonin 3 MG TAB PO PRN (21:33)
[2020-06-15 21:59] VITALS: BMI 32.7
--- NOTE | 2020-06-15 22:08 | PDOC.FPRHP ---
- History of Present Illness Chief Complaint: fatigue, cough History of Present Illness: 70yo M with pmh of HTN and hypothyroid presents with 14 day hx of cough/congestion, and 7 day hx of fatigue. 14 days ago he tested negative for covid after his had tested positive who he continued to live with. Currently he states he feels well and other than cough and fatigue he is asymptomatic ED Course: rocephin, azithro, decadron 6mg - History PMHx: HTN, hypothyroid PSHx: tonsilectomy, cholecystectomy, L arm, unknown knee surgery FHx: non contributory Social: no tobacco/drugs, endorses occasional glass of wine - Review of Systems General: reports: fatigue. denies: fever/chills Eyes: denies: eye pain, vision changes ENT: denies: nasal congestion, rhinorrhea Respiratory: reports: cough, congestion. denies: shortness of breath Cardiovascular: denies: chest pain, palpitation Gastrointestinal: denies: nausea, vomiting Genitourinary: denies: incontinence, dysuria Skin: denies: rashes, lesions Musculoskeletal: denies: pain, tenderness Neurological: denies: numbness, syncope Psychological: denies: anxiety, depression - Vital signs HR: [111] RR: [20] bp 123/67 Tmax: [99.2] Pox: [89]% on [ra] Wt: [100] - Physical Exam Constitutional: NAD, awake, alert and oriented HEENT: normocephalic and atraumatic, EOMI, conjunctiva clear Neck: supple, trachea midline Chest: no-tender to palpation Heart: normal S1/S2 -Heart: tachy Lungs: no wheezing -Lungs: cracles LLB Abdomen: soft, non-tender Musculoskeletal: normal structure, normal tone Neurological: no focal deficit, normal sensation Skin: good turgor, capillary refill <2 seconds Heme/Lymphatic: no unusual bruising or bleeding, no purpura Psychiatric: normal mood and affect, good judgment and insight FMR H&P: A/P - Plan A/P Hypoxic respiratory failure and sepsis 2/2 COVID-19 PNA A- Stable on 2L O2. positive test at [facility] and CT shows evidence of covid type PNA. Sx onset of URI was 14 days ago however he tested negative at that point. Sx onset for fatigue and worsening of sx was 7 days ago 06/08. P- continue decadron -lovenox BID for prophylaxis -will discuss possible remdezevir use -rocephin and azithro for LLL consolidation as stated below CAP A- stable on O2. CXR shows LLL pna. s/p ABX at outside ED P- continue rocephin and azithro -f/u BCx HTN, hypothyroid -pt unsure of home meds, we await a text from with medication list to restart CODE: FULL diet: regular IVF: KVO PCP: Dr. Mercedes Addendum - Attending - Attending Attestation Date/Time: 06/15/20 [id number] I discussed the management with Dr. Carrillo and Jesus I agree with the History, Examination, Assessment and Plan documented above with any addition or exceptions noted below.
[2020-06-15] MEDS ORDERED: REMDESIVIR (EUA) 200 MG in Sodium Chloride 0.9% 250 ML 210 ML IV SCH (22:45)
[2020-06-15] MEDS: cefTRIAXone\\ROCEPHIN 1 GM in Sodium Chloride 0.9% 100 ML IVPB SCH (23:00)
[2020-06-16] MEDS: Azithromycin 500 MG in Sodium Chloride 0.9% 250 ML 250 ML IVPB SCH ×2 (00:59→23:51)
[2020-06-16 05:30] LABS: #Lymphocytes 0.8 thou/uL (1.20-3.40); #Monocytes 0.4 thou/uL (0.11-0.59); #Neutrophils 2.9 thou/uL (1.40-6.50); %Basophils 0.7 % (0.0-1.0); %Eosinophils 0.2 % (0.0-10.0); %Lymphocytes 20.2 % (21.0-51.0); %Monocytes 9.6 % (0.0-10.0); %Neutrophils 69.4 % (42.0-75.0); Hemoglobin 14.7 g/dL (14.0-18.0); Mean Corpuscular HGB CONC 32.8 g/dL (32.0-36.0); Mean Corpuscular Hemoglobin 31.1 pg (27.0-31.0); Mean Corpuscular Volume 94.9 fL (78.0-98.0); Mean Platelet Volume 7.6 fL (7.4-10.4); Platelet Count 153 thou/uL (130-400); RBC Distribution Width 12.2 % (11.5-14.5); Red Blood Cell (RBC) Count 4.71 mill/uL (4.70-6.10); White Blood Cell (WBC) Count 4.2 thou/uL (4.8-10.8)
[2020-06-16 05:53] LABS: CRP (Inflammatory) 6.79 mg/dL (= or < 0.5); Phosphorus 2.9 mg/dL (2.3-4.7)
[2020-06-16 05:54] LABS: ALT (SGPT) 47 U/L (8-55); AST (SGOT) 37 U/L (5-34); Albumin 3.7 g/dL (3.4-4.8); Alkaline Phosphatase 92 U/L (40-110); Anion Gap 14 mmol/L (10-20); BUN (Urea Nitrogen) 22 mg/dL (8.4-25.7); Bilirubin, Total 0.4 mg/dL (0.2-1.2); Calc. Creatinine Clearance 104 mL/min (70-130); Calcium 9.2 mg/dL (7.8-10.44); Carbon Dioxide 26 mmol/L (23-31); Chloride 102 mmol/L (98-107); Glucose 157 mg/dL (80-115); Magnesium 2.3 mg/dL (1.6-2.6); Potassium 3.9 mmol/L (3.5-5.1); Protein, Total 6.7 g/dL (5.8-8.1); Sodium 138 mmol/L (136-145)
[2020-06-16] MEDS: Enoxaparin Sodium 40 MG/0.4 ML SYRINGE SC SCH ×2 (08:49→21:38)
[2020-06-16] MEDS: Dexamethasone 4 mg/ml Vial SLOW IVP SCH (08:49)
[2020-06-16] MEDS: FLU VACC QS2020-21(65YR UP)/PF 240 MCG/0.7 ML SYRINGE IM ONE (09:30)
--- NOTE | 2020-06-16 14:00 | PRG ---
DATE OF SERVICE: 06/16/2020 REASON FOR ADMISSION: Shortness of breath and generalized weakness with cough. SUBJECTIVE: The patient was seen and evaluated at bedside. The patient is currently being evaluated and treated for COVID-19 pneumonia with congestion. The presence of consolidation is questionable. The patient does have past medical history of benign essential hypertension and hypothyroidism. OBJECTIVE: GENERAL: The is patient, alert, oriented, not in acute distress, on oxygen. VITAL SIGNS: He has a temperature of 97.5 degrees Fahrenheit, heart rate is 57 per minute, respiratory rate of 19 per minute, saturation of 94% on 2 L. He has an airway, which is clear. HEENT: Atraumatic, normocephalic. NECK: Supple. No bruit. No lymphadenopathy. CARDIOVASCULAR: S1 and S2. No abnormal rhythms or murmurs. CHEST: Bilateral air entry present. No rhonchi. No wheeze. Basal crepitations noted. ABDOMEN: Soft, nontender. Bowel sounds are present. EXTREMITIES: No cyanosis. No edema. No clubbing. NEUROLOGIC: The patient is alert and oriented x3. No focal motor or sensory deficits noted. HEMATOLOGIC: No ecchymosis or petechiae. PSYCHIATRIC: No depression. DIAGNOSTICS: WBC is 4.2, hemoglobin 14.7, hematocrit 44.7, and platelets are 153. Sodium 138, potassium 3.9, carbon dioxide is 26, BUN 22, creatinine 0.97. Ferritin is 1412. AST 37, ALT 47. C-reactive protein is 6.79. ASSESSMENT: 1. COVID-19 pneumonia. The patient is currently on Decadron. Based on the patient's history, it looks like the patient would have contracted his COVID around June 02. He stays he had symptoms at that point of time and most of his family are infected. So, remdesivir has been discontinued per Infectious Disease. We will continue Decadron for secondary antibiotic coverage. 2. Benign essential hypertension, well controlled. 3. Hypothyroidism, on levothyroxine. PLAN: Discussed in detail about the diagnosis, treatment, and followup with the patient as well as the patient's care team. Advised about continuation of Decadron, nasal cannula oxygen, early ambulation, and DVT prophylaxis. Discharge planning will depend on symptomatic relief. Job ID: [id number]
[2020-06-16] MEDS ORDERED: REMDESIVIR (EUA) 100 MG in Sodium Chloride 0.9% 250 ML 230 ML IV SCH (22:45)
[2020-06-16] MEDS: cefTRIAXone\\ROCEPHIN 1 GM in Sodium Chloride 0.9% 100 ML IVPB SCH (23:10)
[2020-06-16] MEDS: Guaifenesin DM 100-10/5 ML UDCUP PO PRN (23:51)
[2020-06-17] MEDS: Levothyroxine Sodium 100 MCG TAB PO SCH (05:12)
[2020-06-17 06:34] LABS: #Lymphocytes 1.6 thou/uL (1.20-3.40); #Monocytes 0.8 thou/uL (0.11-0.59); #Neutrophils 13.9 thou/uL (1.40-6.50); %Eosinophils 0.1 % (0.0-10.0); %Lymphocytes 9.7 % (21.0-51.0); %Monocytes 5.1 % (0.0-10.0); %Neutrophils 85.1 % (42.0-75.0); Hemoglobin 14.8 g/dL (14.0-18.0); Mean Corpuscular HGB CONC 32.8 g/dL (32.0-36.0); Mean Corpuscular Hemoglobin 31.3 pg (27.0-31.0); Mean Corpuscular Volume 95.2 fL (78.0-98.0); Mean Platelet Volume 8.2 fL (7.4-10.4); Platelet Count 187 thou/uL (130-400); RBC Distribution Width 12.3 % (11.5-14.5); Red Blood Cell (RBC) Count 4.72 mill/uL (4.70-6.10); White Blood Cell (WBC) Count 16.4 thou/uL (4.8-10.8)
[2020-06-17 06:53] LABS: CRP (Inflammatory) 2.91 mg/dL (= or < 0.5); Magnesium 2.1 mg/dL (1.6-2.6)
[2020-06-17 06:54] LABS: ALT (SGPT) 56 U/L (8-55); AST (SGOT) 46 U/L (5-34); Albumin 3.8 g/dL (3.4-4.8); Alkaline Phosphatase 91 U/L (40-110); Anion Gap 17 mmol/L (10-20); BUN (Urea Nitrogen) 23 mg/dL (8.4-25.7); Bilirubin, Total 0.4 mg/dL (0.2-1.2); Calc. Creatinine Clearance 114 mL/min (70-130); Calcium 9.3 mg/dL (7.8-10.44); Carbon Dioxide 24 mmol/L (23-31); Chloride 104 mmol/L (98-107); Globulin 3.2 g/dL (2.4-3.5); Glucose 107 mg/dL (80-115); Potassium 3.9 mmol/L (3.5-5.1); Sodium 141 mmol/L (136-145)
[2020-06-17 07:05] LABS: Phosphorus 3.7 mg/dL (2.3-4.7)
[2020-06-17] MEDS: metFORMIN XR 500 MG TAB PO SCH (08:21)
[2020-06-17] MEDS: Hydrochlorothiazide 25 MG TAB PO SCH (08:21)
[2020-06-17] MEDS: Losartan 25 MG TAB PO SCH (08:21)
[2020-06-17] MEDS: Enoxaparin Sodium 40 MG/0.4 ML SYRINGE SC SCH ×2 (08:21→20:38)
[2020-06-17] MEDS: Dexamethasone 4 mg/ml Vial SLOW IVP SCH (08:21)
[2020-06-17] MEDS: Guaifenesin DM 100-10/5 ML UDCUP PO PRN ×2 (08:24→20:38)
--- NOTE | 2020-06-17 10:13 | PRG ---
DATE OF SERVICE: 06/17/2020 ALLERGIES: NAPROXEN, AMLODIPINE, AND LISINOPRIL. TIME OF SERVICE: 9:00 a.m. SUBJECTIVE: Patient was seen and evaluated at bedside. The patient is alert, oriented, not in acute distress. Currently on nasal cannula oxygen at 2 L for COVID 19 pneumonia with likely superimposed bacterial infection. OBJECTIVE: GENERAL: The patient is alert, oriented, not in acute distress. VITAL SIGNS: Temperature 97.5 degrees Fahrenheit, heart rate of 63 per minute, respiratory rate of 18 per minute, saturation 95% on 2 L of nasal cannula oxygen, has a blood pressure of 124/76 mmHg. Has an airway, which is clear. HEENT: Atraumatic, normocephalic. NECK: Supple. No bruit. No lymphadenopathy. No JVD. CV: S1, S2. No abnormal rhythms or murmurs. CHEST: Bilateral air entry present. No rhonchi. No wheeze. ABDOMEN: Soft, nontender. Bowel sounds are present. No organomegaly. EXTREMITIES: No cyanosis, no edema. No clubbing. NEUROLOGIC: The patient is alert, oriented x3. No focal motor or sensory deficits noted. HEME: No ecchymosis or petechiae. PSYCH: No depression or anxiety. DIAGNOSTICS: WBC 16.4, hemoglobin 14.8, hematocrit 45.0. D-dimer is 0.59. Sodium 141, potassium 3.9, chloride 104, carbon dioxide 24, BUN 23, creatinine 0.88, magnesium 2.1. AST 46, ALT 56. Total bilirubin 0.4. Two sets of blood cultures negative. MEDICATIONS: 1. Zofran 4 mg q.6 p.r.n. 2. Tylenol 650 q.6 p.r.n. 3. Losartan 100 mg daily. 4. Lovenox 40 mg b.i.d. 5. Robitussin DM 15 mL q.4 p.r.n. 6. Metformin 500 mg twice daily. 7. Senna docusate two tabs b.i.d. p.r.n. 8. Rocephin 1 g daily. 9. Decadron 6 mg IV piggyback daily. 10. Zithromax 250 mg every 24 hours. 11. Melatonin 6 mg at bedtime p.r.n. 12. Hydrochlorothiazide 25 mg daily. 13. Levothyroxine 100 mcg daily. ASSESSMENT: 1. Coronavirus disease 2019 pneumonia. Patient currently on Decadron. The patient is not on remdesivir as the patient's onset of symptoms were from June 02, which likely is a time the patient had an infection. 2. Bacterial pneumonia, on IV Rocephin and Zithromax. 3. Benign essential hypertension. 4. Hypothyroidism. PLAN: Discussed in detail the diagnosis and treatment and followup with the patient. Advised the patient about discharge planning. Once he is off oxygen, ambulating with a good saturation above 93% and continue IV antibiotics with subsequent transition to oral antibiotics and discharge. The patient also will continue 10 day course of Decadron. All questions and concerns have been addressed. Job ID: [id number]
[2020-06-17] MEDS: cefTRIAXone\\ROCEPHIN 1 GM in Sodium Chloride 0.9% 100 ML IVPB SCH (23:01)
[2020-06-18] MEDS: Azithromycin 500 MG in Sodium Chloride 0.9% 250 ML 250 ML IVPB SCH (00:08)
[2020-06-18] MEDS: Levothyroxine Sodium 100 MCG TAB PO SCH (05:16)
[2020-06-18 06:40] LABS: #Lymphocytes 1.3 thou/uL (1.20-3.40); #Monocytes 0.7 thou/uL (0.11-0.59); #Neutrophils 9.6 thou/uL (1.40-6.50); %Basophils 0.1 % (0.0-1.0); %Eosinophils 0.1 % (0.0-10.0); %Lymphocytes 10.9 % (21.0-51.0); %Monocytes 5.8 % (0.0-10.0); %Neutrophils 83.2 % (42.0-75.0); Hemoglobin 13.2 g/dL (14.0-18.0); Mean Corpuscular HGB CONC 32.9 g/dL (32.0-36.0); Mean Corpuscular Hemoglobin 31.5 pg (27.0-31.0); Mean Corpuscular Volume 95.7 fL (78.0-98.0); Mean Platelet Volume 7.9 fL (7.4-10.4); Platelet Count 201 thou/uL (130-400); RBC Distribution Width 12.2 % (11.5-14.5); White Blood Cell (WBC) Count 11.5 thou/uL (4.8-10.8)
[2020-06-18 06:51] LABS: Phosphorus 3.5 mg/dL (2.3-4.7)
[2020-06-18 06:53] LABS: CRP (Inflammatory) 3.38 mg/dL (= or < 0.5); Magnesium 2.1 mg/dL (1.6-2.6)
[2020-06-18 06:54] LABS: ALT (SGPT) 63 U/L (8-55); AST (SGOT) 42 U/L (5-34); Albumin 3.3 g/dL (3.4-4.8); Alkaline Phosphatase 83 U/L (40-110); Anion Gap 15 mmol/L (10-20); BUN (Urea Nitrogen) 21 mg/dL (8.4-25.7); Bilirubin, Total 0.7 mg/dL (0.2-1.2); Calc. Creatinine Clearance 116 mL/min (70-130); Calcium 8.9 mg/dL (7.8-10.44); Carbon Dioxide 25 mmol/L (23-31); Chloride 105 mmol/L (98-107); Globulin 2.9 g/dL (2.4-3.5); Glucose 92 mg/dL (80-115); Potassium 3.8 mmol/L (3.5-5.1); Protein, Total 6.2 g/dL (5.8-8.1); Sodium 141 mmol/L (136-145)
[2020-06-18] MEDS: Losartan 25 MG TAB PO SCH (08:49)
[2020-06-18] MEDS: Dexamethasone 4 mg/ml Vial SLOW IVP SCH (08:49)
[2020-06-18] MEDS: Enoxaparin Sodium 40 MG/0.4 ML SYRINGE SC SCH ×2 (08:49→20:07)
[2020-06-18] MEDS: Hydrochlorothiazide 25 MG TAB PO SCH (08:50)
[2020-06-18] MEDS: metFORMIN XR 500 MG TAB PO SCH (08:50)
--- NOTE | 2020-06-18 13:21 | PRG ---
DATE OF SERVICE: 06/18/2020 TIME OF SERVICE: 11 a.m. SUBJECTIVE: The patient was seen and evaluated at bedside. The patient currently on 2 L of oxygen and when oxygen is discontinued, the patient ambulates, desaturates to 88% and 89%. At rest, the patient's saturation is 89% without oxygen. OBJECTIVE: GENERAL: The patient is alert and oriented, not in acute distress. VITAL SIGNS: He has a temperature of 98.4 degrees Fahrenheit, heart rate of 66 per minute, respiratory rate of 20 per minute, saturation of 89% on nasal cannula oxygen, and has a blood pressure of 115/73 mmHg. He has an airway, which is clear. HEENT: Atraumatic and normocephalic. NECK: Supple. No bruit. No lymphadenopathy. CVS: S1 and S2. Normal sinus rhythm. CHEST: Bilateral air entry present. No rhonchi. No wheeze. ABDOMEN: Soft and nontender. Bowel sounds are present. No organomegaly. EXTREMITIES: No cyanosis. No edema. No clubbing. NEUROLOGIC: The patient is alert and oriented x3. No focal motor or sensory deficits noted. HEME: No ecchymosis or petechiae. PSYCH: No depression. DIAGNOSTICS: WBCs 11.5, hemoglobin 13.2, and hematocrit 40.2. Sodium 141, potassium 3.8, chloride 105, carbon dioxide 25, BUN 21, creatinine 0.87, AST 42, and ALT 63. Two sets of blood cultures negative for any growth. A portable chest x-ray is pending. MEDICATIONS: 1. IV Rocephin 1 g q.24. 2. Zithromax 500 mg q.24. 3. Decadron 6 mg daily. 4. Lovenox 40 mg b.i.d. 5. Hydrochlorothiazide 25 mg daily. 6. Levothyroxine 100 mcg daily. 7. Losartan 50 mg daily. 8. Metformin XR 500 mg twice daily. 9. Melatonin 6 mg at bedtime p.r.n. ASSESSMENT: 1. COVID-19 pneumonia. The patient currently on IV Decadron. The patient at rest and on ambulation without oxygen, he is desaturating to 88%. We will continue to monitor, it looks more like a picture of happy hypoxia. We will continue Decadron for now. 2. Pneumonia, on IV Rocephin and Zithromax. This can be transitioned to oral Levaquin on discharge. 3. Benign essential hypertension. 4. Hypothyroidism. 5. Diabetes mellitus type 2 on metformin. PLAN: Discussed in detail of the diagnosis, treatment, and followup with the patient. Advised the patient about discharge planning once his saturation improves to more than 92% on room air. We will continue Decadron, IV Rocephin, and Zithromax for now. We will do a portable chest x-ray evaluation. Likely discharge planning in the next 24 to 48 hours per parameter improvement. Job ID: [id number]
--- NOTE | 2020-06-18 16:24 | RAD ---
Exam: Chest one view HISTORY:Hypoxia Comparison: None FINDINGS: Cardiac silhouette: Normal Aorta: Unremarkable Pulmonary vessels: Normal Costophrenic angles: Clear LUNGS: Interstitial and alveolar opacities. Pneumothorax: None Osseous abnormalities: Internal fixation hardware along the left humerus, incompletely evaluated. Pos sible nonhealed mid left humeral diaphyseal fracture. Correlate clinically. IMPRESSION: Scattered interstitial and alveolar opacities due to edema or infiltrate. Correlate clini sarah.
[2020-06-18] MEDS: Guaifenesin DM 100-10/5 ML UDCUP PO PRN (20:30)
[2020-06-18] MEDS: cefTRIAXone\\ROCEPHIN 1 GM in Sodium Chloride 0.9% 100 ML IVPB SCH (23:49)
[2020-06-18] MEDS: Senokot S 8.6-50 MG TAB PO PRN (23:50)
[2020-06-18] MEDS ORDERED: Azithromycin 250 MG TAB PO SCH (23:59)
[2020-06-19] MEDS: Levothyroxine Sodium 100 MCG TAB PO SCH (05:30)
[2020-06-19 06:03] LABS: #Lymphocytes 1.3 thou/uL (1.20-3.40); #Monocytes 0.7 thou/uL (0.11-0.59); %Basophils 0.2 % (0.0-1.0); %Eosinophils 0.2 % (0.0-10.0); %Lymphocytes 12.7 % (21.0-51.0); %Monocytes 6.9 % (0.0-10.0); %Neutrophils 79.9 % (42.0-75.0); Hemoglobin 13.4 g/dL (14.0-18.0); Mean Corpuscular HGB CONC 32.2 g/dL (32.0-36.0); Mean Corpuscular Hemoglobin 31.1 pg (27.0-31.0); Mean Corpuscular Volume 96.7 fL (78.0-98.0); Mean Platelet Volume 7.6 fL (7.4-10.4); Platelet Count 224 thou/uL (130-400); RBC Distribution Width 12.2 % (11.5-14.5); White Blood Cell (WBC) Count 10.1 thou/uL (4.8-10.8)
[2020-06-19 06:23] LABS: Phosphorus 3.2 mg/dL (2.3-4.7)
[2020-06-19 06:27] LABS: CRP (Inflammatory) 4.86 mg/dL (= or < 0.5); Magnesium 2.2 mg/dL (1.6-2.6)
[2020-06-19 06:28] LABS: ALT (SGPT) 73 U/L (8-55); AST (SGOT) 42 U/L (5-34); Albumin 3.3 g/dL (3.4-4.8); Alkaline Phosphatase 90 U/L (40-110); Anion Gap 14 mmol/L (10-20); BUN (Urea Nitrogen) 21 mg/dL (8.4-25.7); Bilirubin, Total 0.7 mg/dL (0.2-1.2); Calc. Creatinine Clearance 129 mL/min (70-130); Calcium 8.9 mg/dL (7.8-10.44); Carbon Dioxide 24 mmol/L (23-31); Chloride 104 mmol/L (98-107); Glucose 94 mg/dL (80-115); Potassium 3.9 mmol/L (3.5-5.1); Protein, Total 6.3 g/dL (5.8-8.1); Sodium 138 mmol/L (136-145)
[2020-06-19] MEDS: Dexamethasone 4 mg/ml Vial SLOW IVP SCH (08:53)
[2020-06-19] MEDS: metFORMIN XR 500 MG TAB PO SCH (08:53)
[2020-06-19] MEDS: Losartan 25 MG TAB PO SCH (08:53)
[2020-06-19] MEDS: Enoxaparin Sodium 40 MG/0.4 ML SYRINGE SC SCH ×2 (08:54→19:38)
[2020-06-19] MEDS: Hydrochlorothiazide 25 MG TAB PO SCH (08:54)
--- NOTE | 2020-06-19 18:07 | PDOC.HOSPP ---
- Subjective Encounter Date: 06/19/20 Encounter Time: 11:45 Subjective: Patient seen and examined for respiratory failure due to COVID-19 pneumonia. Short of breath on [id number] exertion. Requiring O2 up to 5 L nasal cannula per RN. Mild dry cough. Denies any fever or chills. - Objective Vital Signs & Weight: Vital Signs (12 hours) Temp Pulse Resp BP Pulse Ox 06/19/20 16:32 98.6 F 65 20 135/78 93 L 06/19/20 13:00 98.2 F 60 18 128/82 94 L 06/19/20 09:00 97.8 F 63 18 154/81 H 91 L 06/19/20 08:00 91 L Weight Weight 221 lb 11.2 oz I&O: 06/18/20 06/19/20 06/20/20 06:59 06:59 06:59 Intake Total 1999 570 Balance 1999 570 Result Diagrams: 06/19/20 05:50 06/19/20 05:50 Additional Labs: Abnormal Lab Results - Last 48 hrs 06/18/20 06:01: WBC 11.5 H, RBC 4.20 L, Hgb 13.2 L, Hct 40.2 L, MCH 31.5 H, Neutrophils % 83.2 H, Lymphocytes % 10.9 L, Neutrophils # 9.6 H, Monocytes # 0.7 H 06/18/20 06:01: AST 42 H, ALT 63 H, Albumin 3.3 L, Albumin/Globulin Ratio 1.1 L 06/18/20 06:01: C-Reactive Protein 3.38 H 06/19/20 05:50: RBC 4.30 L, Hgb 13.4 L, Hct 41.6 L, MCH 31.1 H, Neutrophils % 79.9 H, Lymphocytes % 12.7 L, Neutrophils # 8.0 H, Monocytes # 0.7 H 06/19/20 05:50: AST 42 H, ALT 73 H, Albumin 3.3 L, Albumin/Globulin Ratio 1.1 L 06/19/20 05:50: C-Reactive Protein 4.86 H 06/19/20 05:50: D-Dimer 0.46 H Microbiology - Entire Visit 06/16/20 00:02 Venous blood - Right Arm Blood Culture - Preliminary NO GROWTH AT 48 HOURS 06/16/20 00:02 Venous blood - Left Hand Blood Culture - Preliminary NO GROWTH AT 48 HOURS Radiology Reviewed by me: Yes (Chest x-raybilateral infiltrate) Hospitalist ROS - Review of Systems Cardiovascular: denies: chest pain, palpitations, orthopnea, paroxysmal noc. dyspnea, edema, light headedness, other Gastrointestinal: denies: nausea, vomiting, abdominal pain, diarrhea, constipation, melena, hematochezia, other - Medication Medications: Active Medications Generic Name Dose Route Start Last Admin Trade Name Freq PRN Reason Stop Dose Admin Dexamethasone 6 mg 06/16/20 09:00 06/19/20 08:53 Dexamethasone 4 Mg/Ml Vial SLOW IVP 6 mg DAILY DONNIE Administration Enoxaparin Sodium 40 mg 06/16/20 09:00 06/19/20 08:54 Enoxaparin Sodium 40 Mg/0.4 Ml Syringe SC 40 mg BID DONNIE Administration Hydrochlorothiazide 25 mg 06/17/20 09:00 06/19/20 08:54 Hydrochlorothiazide 25 Mg Tab PO 25 mg DAILY DONNIE Administration Levothyroxine Sodium 100 mcg 06/17/20 06:00 06/19/20 05:30 Levothyroxine Sodium 100 Mcg Tab PO 100 mcg 0600 DONNIE Administration Losartan Potassium 100 mg 06/17/20 09:00 06/19/20 08:53 Losartan 25 Mg Tab PO 100 mg DAILY DONNIE Administration Metformin HCl 500 mg 06/17/20 08:00 06/19/20 08:53 Metformin Xr 500 Mg Tab PO 500 mg QAM-WM DONNIE Administration Senna/Docusate Sodium 2 tab 06/15/20 21:08 06/18/20 23:50 Senokot S 8.6-50 Mg Tab PO 2 tab BID PRN Administration Constipation - Exam General Appearance: ill appearing Neck: supple, no JVD Heart: RRR, no gallops Respiratory: no wheezes, rales, rhonchi Gastrointestinal: soft, normal bowel sounds, no guarding, no rigidity Extremities: no cyanosis, no clubbing Neurological: no new deficit Hosp A/P - Plan DVT proph w/lovenox, DVT proph w/SCDs Acute hypoxic respiratory failure due to COVID-19 pneumoniasymptom onset 06/08 Hypertension Hypothyroidism Diabetes mellitus type 2 Obesity with a BMI 32.7 Leukopenia due to COVID-19 Abnormal LFTs probably due to COVID-19 Plan: Case discussed with infectious disease in detail. Patient does not meet the criteria for remdesivir per ID. Continue dexamethasone. Dr. Nelson recommended to discontinue IV ceftriaxone and azithromycin. Continue Lovenox for DVT prophylaxis. Continue levothyroxine, losartan and Metformin. Wean O2 as tolerated. Check inflammatory markers in a.m. DC home once O2 requirement improves.
[2020-06-19] MEDS: Senokot S 8.6-50 MG TAB PO PRN (19:38)
[2020-06-20] MEDS: Levothyroxine Sodium 100 MCG TAB PO SCH (05:17)
[2020-06-20 06:04] LABS: #Eosinphils 0.1 thou/uL (0.0-0.7); #Lymphocytes 1.2 thou/uL (1.20-3.40); #Monocytes 0.8 thou/uL (0.11-0.59); #Neutrophils 6.6 thou/uL (1.40-6.50); %Basophils 0.1 % (0.0-1.0); %Eosinophils 0.7 % (0.0-10.0); %Monocytes 9.2 % (0.0-10.0); %Neutrophils 76.1 % (42.0-75.0); Hemoglobin 14.1 g/dL (14.0-18.0); Mean Corpuscular HGB CONC 32.2 g/dL (32.0-36.0); Mean Corpuscular Hemoglobin 30.8 pg (27.0-31.0); Mean Corpuscular Volume 95.7 fL (78.0-98.0); Mean Platelet Volume 7.8 fL (7.4-10.4); Platelet Count 263 thou/uL (130-400); RBC Distribution Width 12.2 % (11.5-14.5); Red Blood Cell (RBC) Count 4.57 mill/uL (4.70-6.10); White Blood Cell (WBC) Count 8.7 thou/uL (4.8-10.8)
[2020-06-20 06:09] LABS: Phosphorus 3.6 mg/dL (2.3-4.7)
[2020-06-20 06:13] LABS: CRP (Inflammatory) 3.6 mg/dL (= or < 0.5); Magnesium 2.2 mg/dL (1.6-2.6)
[2020-06-20 06:23] LABS: ALT (SGPT) 102 U/L (8-55); AST (SGOT) 59 U/L (5-34); Albumin 3.3 g/dL (3.4-4.8); Alkaline Phosphatase 99 U/L (40-110); Anion Gap 14 mmol/L (10-20); BUN (Urea Nitrogen) 23 mg/dL (8.4-25.7); Bilirubin, Total 0.6 mg/dL (0.2-1.2); Calc. Creatinine Clearance 118 mL/min (70-130); Calcium 9.1 mg/dL (7.8-10.44); Carbon Dioxide 25 mmol/L (23-31); Chloride 106 mmol/L (98-107); Globulin 3.1 g/dL (2.4-3.5); Glucose 96 mg/dL (80-115); Protein, Total 6.4 g/dL (5.8-8.1); Sodium 141 mmol/L (136-145)
[2020-06-20] MEDS: Losartan 25 MG TAB PO SCH (08:45)
[2020-06-20] MEDS: Enoxaparin Sodium 40 MG/0.4 ML SYRINGE SC SCH ×2 (08:45→20:44)
[2020-06-20] MEDS: metFORMIN XR 500 MG TAB PO SCH (08:45)
[2020-06-20] MEDS: Hydrochlorothiazide 25 MG TAB PO SCH (08:46)
[2020-06-20] MEDS: Dexamethasone 4 mg/ml Vial SLOW IVP SCH ×2 (08:46→20:43)
[2020-06-20] MEDS ORDERED: Albuterol 200 PUFF (6.7GM INHALER) INH PRN (15:10)
--- NOTE | 2020-06-20 18:55 | PDOC.HOSPP ---
- Subjective Encounter Date: 06/20/20 Encounter Time: 15:00 Subjective: Patient seen and examined for respiratory failure due to COVID-19. Short of breath on [id number]-vl-[id number] exertion. Denies any chest pain, palpitations or syncope. No nausea or vomiting reported. Poor appetite with loss of taste. - Objective Vital Signs & Weight: Vital Signs (12 hours) Temp Pulse Resp BP Pulse Ox 06/20/20 17:00 94 L 06/20/20 12:31 98 F 55 L 18 118/75 91 L 06/20/20 09:05 98.1 F 54 L 20 125/80 92 L Weight Weight 221 lb 11.2 oz I&O: 06/19/20 06/20/20 06/21/20 06:59 06:59 06:59 Intake Total 570 0 Balance 570 0 Result Diagrams: 06/20/20 05:33 06/20/20 05:33 Additional Labs: Abnormal Lab Results - Last 48 hrs 06/19/20 05:50: RBC 4.30 L, Hgb 13.4 L, Hct 41.6 L, MCH 31.1 H, Neutrophils % 79.9 H, Lymphocytes % 12.7 L, Neutrophils # 8.0 H, Monocytes # 0.7 H 06/19/20 05:50: AST 42 H, ALT 73 H, Albumin 3.3 L, Albumin/Globulin Ratio 1.1 L 06/19/20 05:50: C-Reactive Protein 4.86 H 06/19/20 05:50: D-Dimer 0.46 H 06/20/20 05:33: RBC 4.57 L, Neutrophils % 76.1 H, Lymphocytes % 14.0 L, Neutrophils # 6.6 H, Monocytes # 0.8 H 06/20/20 05:33: AST 59 H, ALT 102 H, Albumin 3.3 L, Albumin/Globulin Ratio 1.1 L 06/20/20 05:33: C-Reactive Protein 3.60 H 06/20/20 05:33: D-Dimer 0.87 H 06/20/20 05:33: Ferritin 1500.02 H Microbiology - Entire Visit 06/16/20 00:02 Venous blood - Right Arm Blood Culture - Preliminary NO GROWTH AT 48 HOURS 06/16/20 00:02 Venous blood - Left Hand Blood Culture - Preliminary NO GROWTH AT 48 HOURS Radiology Reviewed by me: Yes (Chest x-raybilateral pneumonia) Hospitalist ROS - Review of Systems Cardiovascular: denies: chest pain, palpitations, orthopnea, paroxysmal noc. dyspnea, edema, light headedness, other Gastrointestinal: denies: nausea, vomiting, abdominal pain, diarrhea, constipation, melena, hematochezia, other - Medication Medications: Active Medications Generic Name Dose Route Start Last Admin Trade Name Freq PRN Reason Stop Dose Admin Enoxaparin Sodium 40 mg 06/16/20 09:00 06/20/20 08:45 Enoxaparin Sodium 40 Mg/0.4 Ml Syringe SC 40 mg BID DONNIE Administration Hydrochlorothiazide 25 mg 06/17/20 09:00 06/20/20 08:46 Hydrochlorothiazide 25 Mg Tab PO 25 mg DAILY DONNIE Administration Levothyroxine Sodium 100 mcg 06/17/20 06:00 06/20/20 05:17 Levothyroxine Sodium 100 Mcg Tab PO 100 mcg 0600 DONNIE Administration Losartan Potassium 100 mg 06/17/20 09:00 06/20/20 08:45 Losartan 25 Mg Tab PO 100 mg DAILY DONNIE Administration Metformin HCl 500 mg 06/17/20 08:00 06/20/20 08:45 Metformin Xr 500 Mg Tab PO 500 mg QAM-WM DONNIE Administration Senna/Docusate Sodium 2 tab 06/15/20 21:08 06/19/20 19:38 Senokot S 8.6-50 Mg Tab PO 2 tab BID PRN Administration Constipation - Exam General Appearance: ill appearing Neck: supple, no JVD Heart: RRR, no gallops Respiratory: rales, rhonchi Gastrointestinal: soft, non-tender, no guarding Extremities: no cyanosis Neurological: no new deficit Psychiatric: A&O x 3 Hosp A/P - Plan DVT proph w/lovenox, DVT proph w/SCDs Acute hypoxic respiratory failure due to COVID-19 pneumoniasymptom onset 06/08 Hypertension Hypothyroidism Diabetes mellitus type 2 Obesity with a BMI 32.7 Leukopenia due to COVID-19 Abnormal LFTs probably due to COVID-19 Plan: Case discussed with pulmonary Dr. Brown commended increasing dexamethasone to 6 mg twice daily, doxycycline 100 mg twice daily, Dulera as well as convalescent plasma. Continue bronchodilators. Continue GI and DVT prophylaxis. Continue vitamin C and zinc. Recheck inflammatory markers in a.m. Not stable for dischargecurrently on 4 L nasal cannula.
[2020-06-20] MEDS: Albuterol 200 PUFF (6.7GM INHALER) INH SCH ×3 (19:28→23:32)
[2020-06-20] MEDS: Doxycycline 100 MG CAP PO SCH (20:44)
[2020-06-20] MEDS: guaiFENesin ER 600 MG TAB PO SCH (20:44)
[2020-06-20] MEDS: Famotidine 20 MG TAB PO SCH (20:44)
[2020-06-20] MEDS: Zinc Sulfate 220 MG CAP PO SCH (20:44)
[2020-06-20] MEDS: Mometasone 200 MCG/Formoterol 5 MCG 120 PUFF INHALER INH SCH (21:05)
[2020-06-21] MEDS: Albuterol 200 PUFF (6.7GM INHALER) INH SCH ×6 (03:00→22:40)
[2020-06-21] MEDS: Levothyroxine Sodium 100 MCG TAB PO SCH (05:29)
[2020-06-21] MEDS: Mometasone 200 MCG/Formoterol 5 MCG 120 PUFF INHALER INH SCH ×2 (06:17→18:21)
[2020-06-21 06:59] LABS: #Basophils 0.1 thou/uL (0.0-0.2); #Monocytes 0.7 thou/uL (0.11-0.59); #Neutrophils 7.2 thou/uL (1.40-6.50); %Basophils 0.7 % (0.0-1.0); %Eosinophils 0.3 % (0.0-10.0); %Lymphocytes 10.8 % (21.0-51.0); %Monocytes 7.3 % (0.0-10.0); %Neutrophils 80.9 % (42.0-75.0); Mean Corpuscular HGB CONC 33.2 g/dL (32.0-36.0); Mean Corpuscular Hemoglobin 31.5 pg (27.0-31.0); Mean Corpuscular Volume 94.9 fL (78.0-98.0); Mean Platelet Volume 7.5 fL (7.4-10.4); Platelet Count 301 thou/uL (130-400); Red Blood Cell (RBC) Count 4.43 mill/uL (4.70-6.10); White Blood Cell (WBC) Count 8.9 thou/uL (4.8-10.8)
[2020-06-21 07:20] LABS: ALT (SGPT) 93 U/L (8-55); AST (SGOT) 45 U/L (5-34); Albumin 3.4 g/dL (3.4-4.8); Alkaline Phosphatase 99 U/L (40-110); Anion Gap 15 mmol/L (10-20); BUN (Urea Nitrogen) 25 mg/dL (8.4-25.7); Bilirubin, Total 0.6 mg/dL (0.2-1.2); Calc. Creatinine Clearance 121 mL/min (70-130); Calcium 9.1 mg/dL (7.8-10.44); Carbon Dioxide 25 mmol/L (23-31); Chloride 107 mmol/L (98-107); Globulin 3.1 g/dL (2.4-3.5); Glucose 129 mg/dL (80-115); Potassium 4.1 mmol/L (3.5-5.1); Protein, Total 6.5 g/dL (5.8-8.1); Sodium 143 mmol/L (136-145)
--- NOTE | 2020-06-21 08:15 | RAD ---
Portable frontal chest radiograph: 06/21/2020 COMPARISON: 06/18/2020 HISTORY: Pneumonia FINDINGS: There are scattered areas of interstitial opacity with superimposed groundglass disease wit hin the lung bases and upper lobe regions with a peripheral predominance, which appear worsened since the 06/18/2020 exam. No pneumothorax or large volume pleural effusion. Heart and mediastinal con tours are stable. IMPRESSION: Worsening interstitial and groundglass opacity. Findings may be related to worsening atyp ical infectious pneumonitis, such as Covid pneumonia. Clinical correlation is essential. Follow-up imaging following treatment advised.
[2020-06-21] MEDS: Enoxaparin Sodium 40 MG/0.4 ML SYRINGE SC SCH ×2 (08:23→20:50)
[2020-06-21] MEDS: Losartan 25 MG TAB PO SCH (08:23)
[2020-06-21] MEDS: Ascorbic Acid 500 mg Chewable Tablet PO SCH (08:23)
[2020-06-21] MEDS: guaiFENesin ER 600 MG TAB PO SCH ×2 (08:24→20:50)
[2020-06-21] MEDS: metFORMIN XR 500 MG TAB PO SCH (08:24)
[2020-06-21] MEDS: Dexamethasone 4 mg/ml Vial SLOW IVP SCH ×2 (08:24→20:50)
[2020-06-21] MEDS: Doxycycline 100 MG CAP PO SCH ×2 (08:24→20:50)
[2020-06-21] MEDS: Hydrochlorothiazide 25 MG TAB PO SCH (08:24)
[2020-06-21] MEDS: Famotidine 20 MG TAB PO SCH ×2 (08:24→20:50)
[2020-06-21] MEDS: Zinc Sulfate 220 MG CAP PO SCH (20:50)
--- NOTE | 2020-06-21 21:04 | PDOC.HOSPP ---
- Subjective Encounter Date: 06/21/20 Encounter Time: 12:30 Subjective: Patient seen and examined for respiratory failure/COVID 90 pneumonia. Short of breath on minimal exertion. Denies any chest pain, palpitations, fever or chills. No nausea or vomiting reported. Poor appetite. - Objective Vital Signs & Weight: Vital Signs (12 hours) Temp Pulse Resp BP Pulse Ox 06/21/20 16:00 97.5 F L 62 20 124/77 97 06/21/20 12:00 97.7 F 57 L 20 129/82 94 L Weight Weight 221 lb 11.2 oz I&O: 06/20/20 06/21/20 06/22/20 06:59 06:59 06:59 Intake Total 640 960 Balance 640 960 Result Diagrams: 06/21/20 06:30 06/21/20 06:30 Additional Labs: Abnormal Lab Results - Last 48 hrs 06/20/20 05:33: RBC 4.57 L, Neutrophils % 76.1 H, Lymphocytes % 14.0 L, Ellie trophils # 6.6 H, Monocytes # 0.8 H 06/20/20 05:33: AST 59 H, ALT 102 H, Albumin 3.3 L, Albumin/Globulin Ratio 1.1 L 06/20/20 05:33: C-Reactive Protein 3.60 H 06/20/20 05:33: D-Dimer 0.87 H 06/20/20 05:33: Ferritin 1500.02 H 06/21/20 06:30: RBC 4.43 L, MCH 31.5 H, Neutrophils % 80.9 H, Lymphocytes % 10.8 L, Neutrophils # 7.2 H, Lymphocytes # 1.0 L, Monocytes # 0.7 H 06/21/20 06:30: AST 45 H, ALT 93 H, Albumin/Globulin Ratio 1.1 L 06/21/20 06:30: C-Reactive Protein 3.20 H 06/21/20 06:30: D-Dimer 0.71 H 06/21/20 06:30: Ferritin 1141.17 H Microbiology - Entire Visit 06/16/20 00:02 Venous blood - Right Arm Blood Culture - Final NO GROWTH IN 5 DAYS 06/16/20 00:02 Venous blood - Left Hand Blood Culture - Final NO GROWTH IN 5 DAYS Radiology Reviewed by me: Yes (Chest x-raybilateral pneumonia) Hospitalist ROS - Review of Systems Respiratory: reports: cough, dry, shortness of breath, SOB with excertion. denies: hemoptysis, pleuritic pain, sputum, wheezing, other Cardiovascular: denies: chest pain, palpitations, orthopnea, paroxysmal noc. dyspnea, edema, light headedness, other Gastrointestinal: denies: nausea, vomiting, abdominal pain, diarrhea, constipation, melena, hematochezia, other - Medication Medications: Active Medications Generic Name Dose Route Start Last Admin Trade Name Freq PRN Reason Stop Dose Admin Albuterol Sulfate 2 puff 06/20/20 18:30 06/21/20 18:20 Albuterol 200 Puff (6.7gm Inhaler) INH 2 puff [id number] DONNIE Administration Ascorbic Acid 1,000 mg 06/21/20 09:00 06/21/20 08:23 Ascorbic Acid 500 Mg Chewable Tablet PO 1,000 mg DAILY DONNIE Administration Dexamethasone 6 mg 06/20/20 21:00 06/21/20 20:50 Dexamethasone 4 Mg/Ml Vial SLOW IVP 6 mg BID DONNIE Administration Doxycycline Hyclate 100 mg 06/20/20 21:00 06/21/20 20:50 Doxycycline 100 Mg Cap PO 100 mg BID DONNIE Administration Enoxaparin Sodium 40 mg 06/16/20 09:00 06/21/20 20:50 Enoxaparin Sodium 40 Mg/0.4 Ml Syringe SC 40 mg BID DONNIE Administration Famotidine 20 mg 06/20/20 21:00 06/21/20 20:50 Famotidine 20 Mg Tab PO 20 mg BID DONNIE Administration Guaifenesin 600 mg 06/20/20 21:00 06/21/20 20:50 Guaifenesin Er 600 Mg Tab PO 600 mg Q12HR DONNIE Administration Hydrochlorothiazide 25 mg 06/17/20 09:00 06/21/20 08:24 Hydrochlorothiazide 25 Mg Tab PO 25 mg DAILY DONNIE Administration Levothyroxine Sodium 100 mcg 06/17/20 06:00 06/21/20 05:29 Levothyroxine Sodium 100 Mcg Tab PO 100 mcg 0600 DONNIE Administration Losartan Potassium 100 mg 06/17/20 09:00 06/21/20 08:23 Losartan 25 Mg Tab PO 100 mg DAILY DONNIE Administration Metformin HCl 500 mg 06/17/20 08:00 06/21/20 08:24 Metformin Xr 500 Mg Tab PO 500 mg QAM-WM DONNIE Administration Mometasone Furoate/Formoterol Fumar 2 puff 06/20/20 18:30 06/21/20 18:21 Mometasone 200 Mcg/Formoterol 5 Mcg 120 Puff Inhaler INH 2 puff BID-RT DONNIE Administration Senna/Docusate Sodium 2 tab 06/15/20 21:08 06/19/20 19:38 Senokot S 8.6-50 Mg Tab PO 2 tab BID PRN Administration Constipation Sodium Chloride 10 ml 06/15/20 21:08 06/20/20 20:55 Flush - Normal Saline 10 Ml Syringe IVF 10 ml PRN PRN Administration Saline Flush Zinc Sulfate 220 mg 06/20/20 21:00 06/21/20 20:50 Zinc Sulfate 220 Mg Cap PO 220 mg HS DONNIE Administration - Exam General Appearance: ill appearing Neck: supple, no JVD Heart: RRR, no gallops Respiratory: no wheezes, rales, rhonchi Gastrointestinal: soft, non-distended, no guarding, no rigidity Neurological: no new deficit Musculoskeletal: generalized weakness Hosp A/P - Plan DVT proph w/lovenox Acute hypoxic respiratory failure due to COVID-19 pneumoniasymptom onset 06/08 Hypertension Hypothyroidism Diabetes mellitus type 2 Obesity with a BMI 32.7 Leukopenia due to COVID-19 Abnormal LFTs probably due to COVID-19 Plan: Continue O2 supplementation. Patient currently on 4 L nasal cannula. Continue IV steroids, doxycycline and Dulera per Dr. Brown. Continue other medications as above. Continue isolation. AM labs. Monitor inflammatory markers.
[2020-06-22] MEDS: Albuterol 200 PUFF (6.7GM INHALER) INH SCH ×6 (03:02→23:04)
[2020-06-22] MEDS: Levothyroxine Sodium 100 MCG TAB PO SCH (05:02)
[2020-06-22] MEDS: Mometasone 200 MCG/Formoterol 5 MCG 120 PUFF INHALER INH SCH ×2 (06:05→18:19)
[2020-06-22 07:08] LABS: #Eosinphils 0.1 thou/uL (0.0-0.7); #Lymphocytes 1.2 thou/uL (1.20-3.40); #Monocytes 0.8 thou/uL (0.11-0.59); #Neutrophils 9.7 thou/uL (1.40-6.50); %Basophils 0.4 % (0.0-1.0); %Eosinophils 0.5 % (0.0-10.0); %Lymphocytes 9.9 % (21.0-51.0); %Monocytes 6.6 % (0.0-10.0); %Neutrophils 82.6 % (42.0-75.0); Mean Corpuscular HGB CONC 31.7 g/dL (32.0-36.0); Mean Corpuscular Hemoglobin 30.8 pg (27.0-31.0); Mean Corpuscular Volume 97.1 fL (78.0-98.0); Mean Platelet Volume 7.7 fL (7.4-10.4); Platelet Count 317 thou/uL (130-400); Red Blood Cell (RBC) Count 4.54 mill/uL (4.70-6.10); White Blood Cell (WBC) Count 11.8 thou/uL (4.8-10.8)
[2020-06-22 07:30] LABS: ALT (SGPT) 85 U/L (8-55); AST (SGOT) 37 U/L (5-34); Albumin 3.3 g/dL (3.4-4.8); Alkaline Phosphatase 90 U/L (40-110); Anion Gap 11 mmol/L (10-20); BUN (Urea Nitrogen) 25 mg/dL (8.4-25.7); Bilirubin, Total 0.6 mg/dL (0.2-1.2); Calc. Creatinine Clearance 123 mL/min (70-130); Carbon Dioxide 26 mmol/L (23-31); Chloride 104 mmol/L (98-107); Glucose 118 mg/dL (80-115); Potassium 4.2 mmol/L (3.5-5.1); Protein, Total 6.3 g/dL (5.8-8.1); Sodium 137 mmol/L (136-145)
[2020-06-22] MEDS: Enoxaparin Sodium 40 MG/0.4 ML SYRINGE SC SCH ×2 (08:42→21:10)
[2020-06-22] MEDS: metFORMIN XR 500 MG TAB PO SCH (08:42)
[2020-06-22] MEDS: Hydrochlorothiazide 25 MG TAB PO SCH (08:42)
[2020-06-22] MEDS: Ascorbic Acid 500 mg Chewable Tablet PO SCH (08:42)
[2020-06-22] MEDS: guaiFENesin ER 600 MG TAB PO SCH ×2 (08:42→21:09)
[2020-06-22] MEDS: Famotidine 20 MG TAB PO SCH ×2 (08:42→21:10)
[2020-06-22] MEDS: Losartan 25 MG TAB PO SCH (08:42)
[2020-06-22] MEDS: Doxycycline 100 MG CAP PO SCH ×2 (08:43→21:09)
[2020-06-22] MEDS: Dexamethasone 4 mg/ml Vial SLOW IVP SCH ×2 (08:43→21:10)
--- NOTE | 2020-06-22 10:34 | CON ---
DATE OF CONSULTATION: SUBJECTIVE: Michael Stover is a 70-year-old gentleman who has been in the hospital since 04/15/2020. He has had a history of congestion and cough, 2 weeks duration, when he arrived to the hospital. He was found to have coronavirus positive pneumonia at that time. But apparently, he did not receive any specific medication except for Decadron. He then was having some progressive coughing and shortness of breath. X-ray shows bilateral infiltrates. He has now received bag of convalescent plasma with the last 24 to 48 hours and high dose of steroids and empiric antibiotics. Nonsmoker, nondrinker. PAST MEDICAL HISTORY: Hypertension, hypothyroidism. PREVIOUS SURGERIES: Gallbladder, tonsils. ALLERGIES: NORVASC, LISINOPRIL. HOME MEDICATIONS: 1. Losartan. 2. Synthroid. 3. Metformin. 4. Aspirin. 5. Hydrochlorothiazide. PHYSICAL EXAMINATION: VITAL SIGNS: Temperature 97, pulse , respirations 20, sats 95% on 4 L. He but he is walking in the room. Blood pressure 140/80. CHEST: No wheezing, no crackles. CARDIAC: Normal S1, S2. No gallops. ABDOMEN: Soft. LABORATORY DATA: X-ray shows bilateral infiltrates. C-reactive protein is down 1.54. White count 11,000. ASSESSMENT: Respiratory failure secondary to coronavirus positive pneumonia, hypertension, diabetes. PLAN: Continue doxycycline. Continue high-dose Decadron. Supportive care, PT. We will follow. Consultation note, 70 minutes, 50% of direct patient care. Job ID: [id number]
[2020-06-22] MEDS ORDERED: hydrALAZINE 20 MG/ML VIAL SLOW IVP PRN (11:50)
[2020-06-22] MEDS ORDERED: Hydrochlorothiazide 25 MG TAB PO SCH (12:00)
--- NOTE | 2020-06-22 20:30 | PDOC.HOSPP ---
- Subjective Encounter Date: 06/22/20 Encounter Time: 11:00 Subjective: Patient seen and examined for respiratory failure/COVID-19 pneumonia. Short of breath on [id number] exertion. Some dry cough. Denies any fever or chills. No chest pain, palpitations or syncope. - Objective Vital Signs & Weight: Vital Signs (12 hours) Temp Pulse Resp BP Pulse Ox 06/22/20 16:00 97.4 F L 52 L 20 112/60 98 06/22/20 12:00 97.5 F L 56 L 18 102/70 95 Weight Weight 221 lb 11.2 oz I&O: 06/21/20 06/22/20 06/23/20 06:59 06:59 06:59 Intake Total 640 960 Balance 640 960 Result Diagrams: 06/22/20 06:47 06/22/20 06:47 Radiology Reviewed by me: Yes (Chest x-raybilateral infiltrate) Hospitalist ROS - Review of Systems Constitutional: reports: weakness, malaise Gastrointestinal: denies: nausea, vomiting, abdominal pain, diarrhea, constipation, melena, hematochezia, other - Medication Medications: Active Medications Generic Name Dose Route Start Last Admin Trade Name Freq PRN Reason Stop Dose Admin Albuterol Sulfate 2 puff 06/20/20 18:30 06/22/20 18:19 Albuterol 200 Puff (6.7gm Inhaler) INH 2 puff [id number] DONNIE Administration Ascorbic Acid 1,000 mg 06/21/20 09:00 06/22/20 08:42 Ascorbic Acid 500 Mg Chewable Tablet PO 1,000 mg DAILY DONNIE Administration Dexamethasone 6 mg 06/20/20 21:00 06/22/20 08:43 Dexamethasone 4 Mg/Ml Vial SLOW IVP 6 mg BID DONNIE Administration Doxycycline Hyclate 100 mg 06/20/20 21:00 06/22/20 08:43 Doxycycline 100 Mg Cap PO 100 mg BID DONNIE Administration Enoxaparin Sodium 40 mg 06/16/20 09:00 06/22/20 08:42 Enoxaparin Sodium 40 Mg/0.4 Ml Syringe SC 40 mg BID DONNIE Administration Famotidine 20 mg 06/20/20 21:00 06/22/20 08:42 Famotidine 20 Mg Tab PO 20 mg BID DONNIE Administration Guaifenesin 600 mg 06/20/20 21:00 06/22/20 08:42 Guaifenesin Er 600 Mg Tab PO 600 mg Q12HR DONNIE Administration Levothyroxine Sodium 100 mcg 06/17/20 06:00 06/22/20 05:02 Levothyroxine Sodium 100 Mcg Tab PO 100 mcg 0600 DONNIE Administration Metformin HCl 500 mg 06/17/20 08:00 06/22/20 08:42 Metformin Xr 500 Mg Tab PO 500 mg QAM-WM DONNIE Administration Mometasone Furoate/Formoterol Fumar 2 puff 06/20/20 18:30 06/22/20 18:19 Mometasone 200 Mcg/Formoterol 5 Mcg 120 Puff Inhaler INH 2 puff BID-RT DONNIE Administration Senna/Docusate Sodium 2 tab 06/15/20 21:08 06/19/20 19:38 Senokot S 8.6-50 Mg Tab PO 2 tab BID PRN Administration Constipation Sodium Chloride 10 ml 06/15/20 21:08 06/20/20 20:55 Flush - Normal Saline 10 Ml Syringe IVF 10 ml PRN PRN Administration Saline Flush Zinc Sulfate 220 mg 06/20/20 21:00 06/21/20 20:50 Zinc Sulfate 220 Mg Cap PO 220 mg HS DONNIE Administration - Exam General Appearance: ill appearing Neck: supple, no JVD Heart: RRR, no gallops Respiratory: no wheezes, rales, rhonchi Gastrointestinal: soft, non-tender, normal bowel sounds Extremities: no cyanosis, no clubbing Neurological: no new deficit Musculoskeletal: generalized weakness Psychiatric: normal affect, A&O x 3 Hosp A/P - Plan DVT proph w/lovenox, DVT proph w/SCDs Acute hypoxic respiratory failure due to COVID-19 pneumoniasymptom onset 06/08 Hypertension Hypothyroidism Diabetes mellitus type 2 Obesity with a BMI 32.7 Leukopenia due to COVID-19 Abnormal LFTs probably due to COVID-19 Plan: Continue O2 supplementation. Continue IV steroids, Dulera, doxycycline per pulmonary. Case discussed with pulmonary. Pulmonary input appreciated. Continue sliding scale. Reduce losartan dose due to blood pressure on the lower side. Check inflammatory markers and labs in a.m.
[2020-06-22] MEDS: Zinc Sulfate 220 MG CAP PO SCH (21:09)
[2020-06-23] MEDS: Albuterol 200 PUFF (6.7GM INHALER) INH SCH ×6 (02:59→21:53)
[2020-06-23] MEDS: Levothyroxine Sodium 100 MCG TAB PO SCH (05:29)
[2020-06-23] MEDS: Mometasone 200 MCG/Formoterol 5 MCG 120 PUFF INHALER INH SCH ×2 (06:22→18:08)
[2020-06-23 06:37] LABS: #Eosinphils 0.1 thou/uL (0.0-0.7); #Lymphocytes 1.1 thou/uL (1.20-3.40); #Monocytes 0.8 thou/uL (0.11-0.59); #Neutrophils 9.9 thou/uL (1.40-6.50); %Basophils 0.3 % (0.0-1.0); %Eosinophils 0.9 % (0.0-10.0); %Lymphocytes 9.1 % (21.0-51.0); %Neutrophils 82.7 % (42.0-75.0); Hemoglobin 13.9 g/dL (14.0-18.0); Mean Corpuscular HGB CONC 33.3 g/dL (32.0-36.0); Mean Corpuscular Hemoglobin 32.2 pg (27.0-31.0); Mean Corpuscular Volume 96.7 fL (78.0-98.0); Mean Platelet Volume 7.6 fL (7.4-10.4); Platelet Count 319 thou/uL (130-400); RBC Distribution Width 12.2 % (11.5-14.5); Red Blood Cell (RBC) Count 4.31 mill/uL (4.70-6.10)
[2020-06-23 07:01] LABS: ALT (SGPT) 102 U/L (8-55); AST (SGOT) 43 U/L (5-34); Albumin 3.3 g/dL (3.4-4.8); Alkaline Phosphatase 92 U/L (40-110); Anion Gap 14 mmol/L (10-20); BUN (Urea Nitrogen) 28 mg/dL (8.4-25.7); Bilirubin, Total 0.6 mg/dL (0.2-1.2); Calc. Creatinine Clearance 126 mL/min (70-130); Calcium 8.9 mg/dL (7.8-10.44); Carbon Dioxide 21 mmol/L (23-31); Chloride 107 mmol/L (98-107); Globulin 2.8 g/dL (2.4-3.5); Glucose 117 mg/dL (80-115); Potassium 4.4 mmol/L (3.5-5.1); Protein, Total 6.1 g/dL (5.8-8.1); Sodium 138 mmol/L (136-145)
[2020-06-23] MEDS: Ascorbic Acid 500 mg Chewable Tablet PO SCH (09:09)
[2020-06-23] MEDS: metFORMIN XR 500 MG TAB PO SCH (09:09)
[2020-06-23] MEDS: Doxycycline 100 MG CAP PO SCH ×2 (09:10→21:52)
[2020-06-23] MEDS: Losartan 25 MG TAB PO SCH (09:10)
[2020-06-23] MEDS: Hydrochlorothiazide 25 MG TAB PO SCH (09:10)
[2020-06-23] MEDS: Dexamethasone 4 mg/ml Vial SLOW IVP SCH ×2 (09:10→21:50)
[2020-06-23] MEDS: Enoxaparin Sodium 40 MG/0.4 ML SYRINGE SC SCH ×2 (09:10→21:53)
[2020-06-23] MEDS: Famotidine 20 MG TAB PO SCH ×2 (09:10→21:52)
[2020-06-23] MEDS: guaiFENesin ER 600 MG TAB PO SCH ×2 (09:10→21:52)
--- NOTE | 2020-06-23 09:30 | PRG ---
DATE OF SERVICE: 06/23/2020 SUBJECTIVE: Michael Stover remains in the hospital. OBJECTIVE: VITAL SIGNS: Temperature 97, pulse 48, respirations 15, sats are in the 90s on low-flow O2, blood pressure 130/88. CHEST: No wheezing. No crackles. CARDIAC: Normal S1, S2. No gallops. ABDOMEN: No masses. IMPRESSION: Respiratory failure, sahu positive pneumonia. PLAN: Continue high-dose steroids, supportive care, PT when he is improved, switch over to p.o. prednisone. Job ID: [id number]
--- NOTE | 2020-06-23 19:54 | PDOC.HOSPP ---
- Subjective Encounter Date: 06/23/20 Encounter Time: 11:30 Subjective: Patient seen and examined for COVID-19 pneumonia with respiratory failure. Short of breath on [id number] exertion. Some dry cough. Denies any chest pain, palpitations or syncope. Appetite improving. - Objective Vital Signs & Weight: Weight Admit Weight 221 lb 11.2 oz Weight 221 lb 11.2 oz I&O: 06/22/20 06/23/20 06/24/20 06:59 06:59 06:59 Intake Total 960 Balance 960 Result Diagrams: 06/23/20 06:17 06/23/20 06:17 Additional Labs: Abnormal Lab Results - Last 48 hrs 06/22/20 06:47: WBC 11.8 H, RBC 4.54 L, MCHC 31.7 L, Neutrophils % 82.6 H, Lymphocytes % 9.9 L, Neutrophils # 9.7 H, Monocytes # 0.8 H 06/22/20 06:47: AST 37 H, ALT 85 H, Albumin 3.3 L, Albumin/Globulin Ratio 1.1 L 06/22/20 06:47: C-Reactive Protein 1.54 H 06/22/20 06:47: D-Dimer 0.56 H 06/22/20 06:47: Ferritin 1093.59 H 06/23/20 06:17: WBC 12.0 H, RBC 4.31 L, Hgb 13.9 L, Hct 41.7 L, MCH 32.2 H, Neutrophils % 82.7 H, Lymphocytes % 9.1 L, Neutrophils # 9.9 H, Lymphocytes # 1.1 L, Monocytes # 0.8 H 06/23/20 06:17: Carbon Dioxide 21 L, BUN 28 H, AST 43 H, ALT 102 H, Albumin 3.3 L 06/23/20 06:17: C-Reactive Protein 0.70 H 06/23/20 06:17: D-Dimer 0.46 H 06/23/20 06:17: Ferritin 1018.37 H Microbiology - Entire Visit 06/16/20 00:02 Venous blood - Right Arm Blood Culture - Final NO GROWTH IN 5 DAYS 06/16/20 00:02 Venous blood - Left Hand Blood Culture - Final NO GROWTH IN 5 DAYS Radiology Reviewed by me: Yes (Bilateral pneumonia on chest x-ray) Hospitalist ROS - Review of Systems Cardiovascular: denies: chest pain, palpitations, orthopnea, paroxysmal noc. dyspnea, edema, light headedness, other Gastrointestinal: denies: nausea, vomiting, abdominal pain, diarrhea, constipation, melena, hematochezia, other - Medication Medications: Active Medications Generic Name Dose Route Start Last Admin Trade Name Freq PRN Reason Stop Dose Admin Albuterol Sulfate 2 puff 06/20/20 18:30 06/23/20 18:08 Albuterol 200 Puff (6.7gm Inhaler) INH 2 puff [id number] DONNIE Administration Ascorbic Acid 1,000 mg 06/21/20 09:00 06/23/20 09:09 Ascorbic Acid 500 Mg Chewable Tablet PO 1,000 mg DAILY DONNIE Administration Dexamethasone 6 mg 06/20/20 21:00 06/23/20 09:10 Dexamethasone 4 Mg/Ml Vial SLOW IVP 6 mg BID DONNIE Administration Doxycycline Hyclate 100 mg 06/20/20 21:00 06/23/20 09:10 Doxycycline 100 Mg Cap PO 100 mg BID DONNIE Administration Enoxaparin Sodium 40 mg 06/16/20 09:00 06/23/20 09:10 Enoxaparin Sodium 40 Mg/0.4 Ml Syringe SC 40 mg BID DONNIE Administration Famotidine 20 mg 06/20/20 21:00 06/23/20 09:10 Famotidine 20 Mg Tab PO 20 mg BID DONNIE Administration Guaifenesin 600 mg 06/20/20 21:00 06/23/20 09:10 Guaifenesin Er 600 Mg Tab PO 600 mg Q12HR DONNIE Administration Hydrochlorothiazide 25 mg 06/23/20 09:00 06/23/20 09:10 Hydrochlorothiazide 25 Mg Tab PO 25 mg DAILY DONNIE Administration Levothyroxine Sodium 100 mcg 06/17/20 06:00 06/23/20 05:29 Levothyroxine Sodium 100 Mcg Tab PO 100 mcg 0600 DONNIE Administration Losartan Potassium 25 mg 06/23/20 09:00 06/23/20 09:10 Losartan 25 Mg Tab PO 25 mg DAILY DONNIE Administration Metformin HCl 500 mg 06/17/20 08:00 06/23/20 09:09 Metformin Xr 500 Mg Tab PO 500 mg QAM-WM DONNIE Administration Mometasone Furoate/Formoterol Fumar 2 puff 06/20/20 18:30 06/23/20 18:08 Mometasone 200 Mcg/Formoterol 5 Mcg 120 Puff Inhaler INH 2 puff BID-RT DONNIE Administration Senna/Docusate Sodium 2 tab 06/15/20 21:08 06/19/20 19:38 Senokot S 8.6-50 Mg Tab PO 2 tab BID PRN Administration Constipation Sodium Chloride 10 ml 06/15/20 21:08 06/20/20 20:55 Flush - Normal Saline 10 Ml Syringe IVF 10 ml PRN PRN Administration Saline Flush Zinc Sulfate 220 mg 06/20/20 21:00 06/22/20 21:09 Zinc Sulfate 220 Mg Cap PO 220 mg HS DONNIE Administration - Exam General Appearance: ill appearing Neck: supple, no JVD Heart: RRR, no gallops Respiratory: no wheezes, rales, rhonchi Gastrointestinal: soft, non-tender, no guarding, no rigidity Extremities: no cyanosis Neurological: no new deficit Psychiatric: normal affect, A&O x 3 Hosp A/P - Plan DVT proph w/lovenox, DVT proph w/SCDs Acute hypoxic respiratory failure due to COVID-19 pneumoniasymptom onset 06/08 Hypertension Hypothyroidism Diabetes mellitus type 2 Obesity with a BMI 32.7 Leukopenia due to COVID-19 Abnormal LFTs probably due to COVID-19 Plan: Case discussed with pulmonary Dr. Brown. Continue current dose of dexamethasone, doxycycline, albuterol, losartan, Metformin and Dulera. Continue supportive care. Recheck labs in a.m. Check inflammatory markers in a.m. Patient remains on 4 L nasal cannula and is not stable for discharge
[2020-06-23] MEDS: Zinc Sulfate 220 MG CAP PO SCH (21:52)
[2020-06-24] MEDS: Albuterol 200 PUFF (6.7GM INHALER) INH SCH ×6 (02:49→20:34)
[2020-06-24] MEDS: Levothyroxine Sodium 100 MCG TAB PO SCH (05:22)
[2020-06-24] MEDS: Mometasone 200 MCG/Formoterol 5 MCG 120 PUFF INHALER INH SCH ×2 (06:07→18:09)
[2020-06-24 06:56] LABS: #Eosinphils 0.1 thou/uL (0.0-0.7); #Lymphocytes 1.4 thou/uL (1.20-3.40); #Monocytes 0.8 thou/uL (0.11-0.59); #Neutrophils 10.6 thou/uL (1.40-6.50); %Basophils 0.2 % (0.0-1.0); %Eosinophils 0.5 % (0.0-10.0); %Lymphocytes 10.8 % (21.0-51.0); %Monocytes 6.5 % (0.0-10.0); %Neutrophils 82.1 % (42.0-75.0); Mean Corpuscular HGB CONC 33.1 g/dL (32.0-36.0); Mean Corpuscular Hemoglobin 31.7 pg (27.0-31.0); Mean Corpuscular Volume 95.8 fL (78.0-98.0); Platelet Count 322 thou/uL (130-400); RBC Distribution Width 12.2 % (11.5-14.5); Red Blood Cell (RBC) Count 4.41 mill/uL (4.70-6.10); White Blood Cell (WBC) Count 12.9 thou/uL (4.8-10.8)
[2020-06-24 07:14] LABS: ALT (SGPT) 107 U/L (8-55); AST (SGOT) 43 U/L (5-34); Albumin 3.2 g/dL (3.4-4.8); Alkaline Phosphatase 89 U/L (40-110); Anion Gap 15 mmol/L (10-20); BUN (Urea Nitrogen) 26 mg/dL (8.4-25.7); Bilirubin, Total 0.6 mg/dL (0.2-1.2); Calc. Creatinine Clearance 138 mL/min (70-130); Carbon Dioxide 21 mmol/L (23-31); Chloride 106 mmol/L (98-107); Glucose 108 mg/dL (80-115); Potassium 4.4 mmol/L (3.5-5.1); Protein, Total 6.2 g/dL (5.8-8.1); Sodium 138 mmol/L (136-145)
[2020-06-24] MEDS: guaiFENesin ER 600 MG TAB PO SCH ×2 (08:06→19:58)
[2020-06-24] MEDS: Hydrochlorothiazide 25 MG TAB PO SCH (08:06)
[2020-06-24] MEDS: Enoxaparin Sodium 40 MG/0.4 ML SYRINGE SC SCH ×2 (08:06→19:59)
[2020-06-24] MEDS: metFORMIN XR 500 MG TAB PO SCH (08:06)
[2020-06-24] MEDS: Dexamethasone 4 mg/ml Vial SLOW IVP SCH ×2 (08:07→19:59)
[2020-06-24] MEDS: Ascorbic Acid 500 mg Chewable Tablet PO SCH (08:07)
[2020-06-24] MEDS: Losartan 25 MG TAB PO SCH (08:07)
[2020-06-24] MEDS: Famotidine 20 MG TAB PO SCH ×2 (08:07→19:58)
[2020-06-24] MEDS: Doxycycline 100 MG CAP PO SCH ×2 (08:12→19:58)
--- NOTE | 2020-06-24 10:02 | PRG ---
DATE OF SERVICE: 06/24/2020 SUBJECTIVE: Parmar positive pneumonia. He is doing much better. OBJECTIVE: VITAL SIGNS: Temperature 98 CHEST: No wheezing. No crackles. CARDIAC: Normal S1, S2. No gallops. ABDOMEN: No masses. ASSESSMENT: Parmar positive pneumonia, status post convalescent plasma, steroids, looks much improved. Switch him to oral prednisone, which can be tapered over 2 weeks. Hopefully, can be discharged home in next day or two. Job ID: [id number]
[2020-06-24] MEDS: Zinc Sulfate 220 MG CAP PO SCH (19:58)
--- NOTE | 2020-06-24 20:55 | PDOC.HOSPP ---
- Subjective Encounter Date: 06/24/20 Encounter Time: 15:00 Subjective: Patient seen and examined for COVID-19 pneumonia. Shortness of breath gradually improving. Some dry cough. Denies any chest pain or palpitations. - Objective Vital Signs & Weight: Weight Admit Weight 221 lb 11.2 oz Weight 221 lb 11.2 oz I&O: 06/23/20 06/24/20 06/25/20 06:59 06:59 06:59 Intake Total 360 960 Balance 360 960 Result Diagrams: 06/24/20 06:20 06/24/20 06:20 Additional Labs: Abnormal Lab Results - Last 48 hrs 06/23/20 06:17: WBC 12.0 H, RBC 4.31 L, Hgb 13.9 L, Hct 41.7 L, MCH 32.2 H, Neutrophils % 82.7 H, Lymphocytes % 9.1 L, Neutrophils # 9.9 H, Lymphocytes # 1.1 L, Monocytes # 0.8 H 06/23/20 06:17: Carbon Dioxide 21 L, BUN 28 H, AST 43 H, ALT 102 H, Albumin 3.3 L 06/23/20 06:17: C-Reactive Protein 0.70 H 06/23/20 06:17: D-Dimer 0.46 H 06/23/20 06:17: Ferritin 1018.37 H 06/24/20 06:20: WBC 12.9 H, RBC 4.41 L, MCH 31.7 H, Neutrophils % 82.1 H, Lymphocytes % 10.8 L, Neutrophils # 10.6 H, Monocytes # 0.8 H 06/24/20 06:20: Carbon Dioxide 21 L, BUN 26 H, AST 43 H, ALT 107 H, Albumin 3.2 L, Albumin/Globulin Ratio 1.1 L 06/24/20 06:20: Ferritin 908.47 H 06/24/20 06:20: D-Dimer 3.96 H Microbiology - Entire Visit 06/16/20 00:02 Venous blood - Right Arm Blood Culture - Final NO GROWTH IN 5 DAYS 06/16/20 00:02 Venous blood - Left Hand Blood Culture - Final NO GROWTH IN 5 DAYS Hospitalist ROS - Review of Systems Cardiovascular: denies: chest pain, palpitations, orthopnea, paroxysmal noc. dyspnea, edema, light headedness, other Gastrointestinal: denies: nausea, vomiting, abdominal pain, diarrhea, constipation, melena, hematochezia, other - Medication Medications: Active Medications Generic Name Dose Route Start Last Admin Trade Name Kunal PRN Reason Stop Dose Admin Albuterol Sulfate 2 puff 06/20/20 18:30 06/24/20 20:34 Albuterol 200 Puff (6.7gm Inhaler) INH 2 puff [id number] DONNIE Administration Ascorbic Acid 1,000 mg 06/21/20 09:00 06/24/20 08:07 Ascorbic Acid 500 Mg Chewable Tablet PO 1,000 mg DAILY DONNIE Administration Dexamethasone 6 mg 06/20/20 21:00 06/24/20 19:59 Dexamethasone 4 Mg/Ml Vial SLOW IVP 6 mg BID DONNIE Administration Doxycycline Hyclate 100 mg 06/20/20 21:00 06/24/20 19:58 Doxycycline 100 Mg Cap PO 100 mg BID DONNIE Administration Enoxaparin Sodium 40 mg 06/16/20 09:00 06/24/20 19:59 Enoxaparin Sodium 40 Mg/0.4 Ml Syringe SC 40 mg BID DONNIE Administration Famotidine 20 mg 06/20/20 21:00 06/24/20 19:58 Famotidine 20 Mg Tab PO 20 mg BID DONNIE Administration Guaifenesin 600 mg 06/20/20 21:00 06/24/20 19:58 Guaifenesin Er 600 Mg Tab PO 600 mg Q12HR DONNIE Administration Hydrochlorothiazide 25 mg 06/23/20 09:00 06/24/20 08:06 Hydrochlorothiazide 25 Mg Tab PO 25 mg DAILY DONNIE Administration Levothyroxine Sodium 100 mcg 06/17/20 06:00 06/24/20 05:22 Levothyroxine Sodium 100 Mcg Tab PO 100 mcg 0600 DONNIE Administration Losartan Potassium 25 mg 06/23/20 09:00 06/24/20 08:07 Losartan 25 Mg Tab PO 25 mg DAILY DONNIE Administration Metformin HCl 500 mg 06/17/20 08:00 06/24/20 08:06 Metformin Xr 500 Mg Tab PO 500 mg QAM-WM DONNIE Administration Mometasone Furoate/Formoterol Fumar 2 puff 06/20/20 18:30 06/24/20 18:09 Mometasone 200 Mcg/Formoterol 5 Mcg 120 Puff Inhaler INH 2 puff BID-RT DONNIE Administration Senna/Docusate Sodium 2 tab 06/15/20 21:08 06/19/20 19:38 Senokot S 8.6-50 Mg Tab PO 2 tab BID PRN Administration Constipation Sodium Chloride 10 ml 06/15/20 21:08 06/20/20 20:55 Flush - Normal Saline 10 Ml Syringe IVF 10 ml PRN PRN Administration Saline Flush Zinc Sulfate 220 mg 06/20/20 21:00 06/24/20 19:58 Zinc Sulfate 220 Mg Cap PO 220 mg HS DONNIE Administration - Exam General Appearance: ill appearing Neck: supple, no JVD Heart: RRR, no gallops Respiratory: no wheezes, rales, rhonchi Gastrointestinal: soft, non-tender Extremities: no cyanosis Neurological: no new deficit Hosp A/P - Plan DVT proph w/lovenox Acute hypoxic respiratory failure due to COVID-19 pneumoniasymptom onset 06/08 Hypertension Hypothyroidism Diabetes mellitus type 2 Obesity with a BMI 32.7 Leukopenia due to COVID-19 Abnormal LFTs probably due to COVID-19 Plan: Patient now on 3 L nasal cannula. Case discussed with pulmonary Dr. Brown. Will continue dexamethasone with bronchodilators and inhaled steroids. Continue doxycycline. Continue supportive care. Check inflammatory markers in a.m.
[2020-06-25] MEDS: Albuterol 200 PUFF (6.7GM INHALER) INH SCH ×5 (02:13→17:49)
[2020-06-25] MEDS: Levothyroxine Sodium 100 MCG TAB PO SCH (05:15)
[2020-06-25] MEDS: Mometasone 200 MCG/Formoterol 5 MCG 120 PUFF INHALER INH SCH ×2 (05:15→18:02)
[2020-06-25 05:57] LABS: #Eosinphils 0.1 thou/uL (0.0-0.7); #Lymphocytes 1.7 thou/uL (1.20-3.40); #Neutrophils 12.6 thou/uL (1.40-6.50); %Basophils 0.3 % (0.0-1.0); %Eosinophils 0.6 % (0.0-10.0); %Lymphocytes 10.9 % (21.0-51.0); %Monocytes 6.2 % (0.0-10.0); Hemoglobin 14.2 g/dL (14.0-18.0); Mean Corpuscular HGB CONC 31.8 g/dL (32.0-36.0); Mean Corpuscular Hemoglobin 30.2 pg (27.0-31.0); Mean Corpuscular Volume 94.9 fL (78.0-98.0); Mean Platelet Volume 7.9 fL (7.4-10.4); Platelet Count 356 thou/uL (130-400); RBC Distribution Width 12.1 % (11.5-14.5); White Blood Cell (WBC) Count 15.3 thou/uL (4.8-10.8)
[2020-06-25 06:14] LABS: ALT (SGPT) 101 U/L (8-55); AST (SGOT) 34 U/L (5-34); Albumin 3.4 g/dL (3.4-4.8); Alkaline Phosphatase 91 U/L (40-110); Anion Gap 15 mmol/L (10-20); BUN (Urea Nitrogen) 22 mg/dL (8.4-25.7); Bilirubin, Total 0.6 mg/dL (0.2-1.2); Calc. Creatinine Clearance 132 mL/min (70-130); Calcium 8.8 mg/dL (7.8-10.44); Carbon Dioxide 21 mmol/L (23-31); Chloride 104 mmol/L (98-107); Globulin 2.8 g/dL (2.4-3.5); Glucose 124 mg/dL (80-115); Potassium 4.5 mmol/L (3.5-5.1); Protein, Total 6.2 g/dL (5.8-8.1); Sodium 135 mmol/L (136-145)
[2020-06-25] MEDS: Enoxaparin Sodium 40 MG/0.4 ML SYRINGE SC SCH (08:11)
[2020-06-25] MEDS: Famotidine 20 MG TAB PO SCH (08:11)
[2020-06-25] MEDS: Doxycycline 100 MG CAP PO SCH (08:11)
[2020-06-25] MEDS: Hydrochlorothiazide 25 MG TAB PO SCH (08:12)
[2020-06-25] MEDS: metFORMIN XR 500 MG TAB PO SCH (08:12)
[2020-06-25] MEDS: Losartan 25 MG TAB PO SCH (08:12)
[2020-06-25] MEDS: Ascorbic Acid 500 mg Chewable Tablet PO SCH (08:12)
[2020-06-25] MEDS: Dexamethasone 4 mg/ml Vial SLOW IVP SCH (08:12)
[2020-06-25] MEDS: guaiFENesin ER 600 MG TAB PO SCH (08:12)
[2020-06-25 19:59] VITALS: BP 97/60; TEMP 98.6
--- NOTE | 2020-06-26 09:13 | PDOC.DS.DS ---
Provider - Provider Date of Admission: 06/15/20 20:26 Date of Discharge: 06/25/20 Admitting Provider: Aaron Koo MD Consultations: Pulmonary Primary Care Physician: Aaron Koo MD Course - Hospital Course Hospital Course: Patient is a 70-year-old male who initially presented to the hospital with cough and congestion. Patient's was tested for Covid and was positive patient continued to live in close quarters with her. Patient was positive for Covid pneumonia. He was put on 5 L nasal cannula. Patient was started on steroids an d doxycycline. Pulmonary was consulted. Patient did not meet the criteria for remdesivir per infectious disease. Patient continued to improve the hospital stay he was then discharged home with oxygen. Resuscitation Status: 06/15/20 21:08 Resuscitation Status Routine Co-Sign Provider: Resuscitation Status: FULL: Full Resuscitation - Labs Lab Results: 06/25/20 05:38 06/25/20 05:38 Abnormal Lab Results - Last 48 hrs 06/25/20 05:38: WBC 15.3 H, MCHC 31.8 L, Neutrophils % 82.0 H, Lymphocytes % 10.9 L, Neutrophils # 12.6 H, Monocytes # 1.0 H 06/25/20 05:38: Sodium 135 L, Carbon Dioxide 21 L, ALT 101 H 06/25/20 05:38: D-Dimer 0.44 H 06/25/20 05:38: Ferritin 964.37 H Microbiology - Entire Visit 06/16/20 00:02 Venous blood - Right Arm Blood Culture - Final NO GROWTH IN 5 DAYS 06/16/20 00:02 Venous blood - Left Hand Blood Culture - Final NO GROWTH IN 5 DAYS - Physical Exam Vitals: Weight Admit Weight 221 lb 11.2 oz Weight 221 lb 11.2 oz Physical Exam: The patient was seen and examined on the day of discharge. Problem - Discharge Plan Assessment: Acute hypoxic respiratory failure due to COVID-19 pneumoniasymptom onset 06/08 Hypertension Hypothyroidism Diabetes mellitus type 2 Obesity with a BMI 32.7 Leukopenia due to COVID-19 Abnormal LFTs probably due to COVID-19 Plan - Discharge Medications Prescriptions: Aspirin 325 mg PO DAILY #14 tablet Dexamethasone [Decadron] 6 mg PO DAILY #5 tablet Mometasone/Formoterol 200/5 [Dulera 200 Mcg/5 Mcg Inhaler] 2 puff INH BID-RT #1 inh Albuterol Sulfate [Proventil Hfa] 2 puff INH Q2H PRN #1 aer PRN Reason: Sob &/Or Wheezing Doxycycline [Vibramycin] 100 mg PO BID #8 cap Home Medications: Medication Instructions Recorded Confirmed Type Hydrochlorothiazide 1 tab PO DAILY 06/15/20 06/15/20 History Levothyroxine Sodium [Euthyrox] 1 tab PO DAILY 06/15/20 06/15/20 History Losartan Potassium 1 tab PO DAILY 06/15/20 06/15/20 History metFORMIN HCl [Metformin HCl ER] 500 mg PO DAILY 06/15/20 06/15/20 History Albuterol Sulfate [Proventil Hfa] 2 puff INH Q2H PRN #1 aer 06/25/20 Rx Aspirin 325 mg PO DAILY #14 tablet 06/25/20 Rx Dexamethasone [Decadron] 6 mg PO DAILY #5 tablet 06/25/20 Rx Doxycycline [Vibramycin] 100 mg PO BID #8 cap 06/25/20 Rx Mometasone/Formoterol 200/5 2 puff INH BID-RT #1 inh 06/25/20 Rx [Dulera 200 Mcg/5 Mcg Inhaler] Allergies: naproxen [From Aleve] Allergy (Severe, Verified 06/15/20 22:20) amlodipine [From Norvasc] Allergy (Verified 06/16/20 19:29) lisinopril Allergy (Verified 06/16/20 19:28) - Discharge Instructions Discharge Instructions:: please take the steroids with food. Activity:: Activity as Tolerated Nourishment:: Heart Healthy Diet - Follow up Plan Referrals: Laci Brown MD [Active] - Aaron Koo MD [Primary Care Provider] - 7 Days Disposition: HOME Quality - Care Measures CORE MEASURES:: N/A
--- NOTE | 2020-06-28 05:10 | PQF ---
CLINICAL DOCUMENTATION CLARIFICATION FORM: Dear : Lolly Sanchez Date / Time: 06/28/2020 0401 Please exercise your independent, professional judgment in responding to the clarification form. Clinical indicators are provided on the bottom of this form for your review Please check appropriate box(es): [ ] Sepsis due to Covid19 infection [ ] Severe sepsis due to Covid19 infection with associated acute organ dysfunction [ ] Septic Shock [ ] Localized infection without sepsis [ x] Other diagnosis, please specify ___covid no sepsis [ ] Unable to determine In addition, please specify: Present on Admission (POA): [x ] Yes [ ] No [ ] Unable to determine Physician Signature: Date/Time: For continuity of documentation, please document condition throughout progress notes and discharge summary. Thank You. To be completed by CDI/Coding staff for physician review: Present Clinical Indicators - Signs / Symptoms / Labs Results and Location in Medical Record [X] WBC 4.2, Plt count 153, Neutrophils 69.4 Laboratory 06/15 [X] BP 97/64, Pulse 61, Resp 18, Temp 97.8 Vital signs 06/15 [X] Blood culture No growth in 5 days Microbiology 06/16 [X] Chest X-ray: Scattered interstitial and alveolar opacities due to edema or infitrates Imaging Dr Chapman 06/18 [X] 14 day hx of cough and congestion H&P p1 06/15 Dr Haskins [X] Hypoxic respiratory failure and Sepsis /2 Covid Pneumonia H&P p2 06/15 Dr Haskins Present Risk Factors Results and Location in Medical Record [X] 70 year-old Male H&P p1 06/15 Dr Haskins [X] Covid Pneumonia H&P p2 06/15 Dr Haskins [X] Bacterial PNA PN 06/17 [X] DM PN 06/18 [X] Obesity PN 06/19 Present Treatments Results and Location in Medical Record [X] IV Azithromycin 500 mg SEP 23 [X] IV Ceftriaxone 1 gm SEP 23 [X] IV Remdesivir 200 mg SEP 23 [X] IVF NS 1L SEP 23 [X] Convalescent plasma Blood bank 06/20 [X] Respiratory consult Consult Dr Brown 06/22 CDS/Core Loader Signature: Betty Krause Kayleen Phone #: [phone] Date/Time: 06/28/2020 0509 This is a permanent part of the Medical Record [facility]
== END 2020-06-25 19:51 | disposition home or self-care (01) | DRG 177 ==
LOC: T4-A 20:26
PROVIDERS: ADMIT Family Medicine; ATTEND Internal Medicine
PROC: XW033E5 Introduction of Remdesivir Anti-infective into Peripheral Vein, Percutaneous Approach, New Technology Group 5 (ICD-10-PCS; principal; 2020-06-15)
PROC: 8E0ZXY6 Isolation (ICD-10-PCS; 2020-06-15)
PROC: XW13325 Transfusion of Convalescent Plasma (Nonautologous) into Peripheral Vein, Percutaneous Approach, New Technology Group 5 (ICD-10-PCS; 2020-06-20)
DX: U07.1 COVID-19 (principal); J12.89 Other viral pneumonia; J96.01 Acute respiratory failure with hypoxia; J15.9 Unspecified bacterial pneumonia; E03.9 Hypothyroidism, unspecified; I10 Essential (primary) hypertension; E11.9 Type 2 diabetes mellitus without complications; E66.9 Obesity, unspecified; R94.5 Abnormal results of liver function studies; Z88.8 Allergy status to other drugs, medicaments and biological substances; Z90.49 Acquired absence of other specified parts of digestive tract; Z68.32 Body mass index [BMI] 32.0-32.9, adult; Z79.82 Long term (current) use of aspirin; Z79.890 Hormone replacement therapy; Z79.899 Other long term (current) drug therapy; Z79.84 Long term (current) use of oral hypoglycemic drugs
CPT/HCPCS: 36415; 36430; 71045; 80053; 82728; 83615; 83735; 84100; 84145; 85025; 85379; 86140; 86850; 86900; 86901; 87040; J0456; J0696; J1100; J1650; J3490; J7050; P9017

== ENCOUNTER 2020-08-11 08:48 | Outpatient (CLI) | payer MEDICARE, OTHER ==
--- NOTE | 2020-08-11 09:20 | RAD ---
EXAM: CHEST TWO VIEWS 08/11/2020 9:16 AM HISTORY: 70-year-old male with dyspnea COMPARISON: CTA of the chest dated July 13, 2020 and a chest radiograph dated June 18, 2020 FINDINGS: Lungs: Since the original chest radiograph dated June 18, 2020, there is worsening peripheral sub pleural interstitial opacities with peripheral bronchiectasis consistent with changes of interstitial fibrosis and traction bronchiectasis. Heart: There is stable mild cardiomegaly. Pulmonary Vessels: Normal. Costophrenic Angles: Clear. Pneumothorax: None. Osseous Structures: There is partial visualization of instrumentation involving the proximal left hu merus consistent with an intramedullary nail with interlocking screws. Additional Findings: Surgical clips are seen within the right upper quadrant likely related to prio r cholecystectomy. IMPRESSION: 1. 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 2. Stable mild cardiomegaly without evidence of cardiac decompensation.
== END 2020-08-11 08:49 | disposition home or self-care (01) ==
LOC: BICRAD 08:48
PROVIDERS: ATTEND Internal Medicine Pulmonary Disease
DX: R06.00 Dyspnea, unspecified (principal); I51.7 Cardiomegaly; J84.10 Pulmonary fibrosis, unspecified
CPT/HCPCS: 71046

== ENCOUNTER 2021-01-11 09:09 | Outpatient (CLI) | payer MEDICARE, OTHER | END 2021-01-11 09:10 | disposition home or self-care (01) | LOC: BICRAD 09:09 | PROVIDERS: ATTEND Internal Medicine Pulmonary Disease | DX: R06.00 Dyspnea, unspecified (principal) | CPT/HCPCS: 71046 ==

== ENCOUNTER 2021-05-23 14:36 | Outpatient (CLI) | payer MEDICARE, OTHER ==
[~2021-05-23 14:36] MED LIST: Magnevist 469MG/ML 20 ML VIAL ONE
== END 2021-05-23 14:37 | disposition home or self-care (01) ==
LOC: BICMRI 14:36
PROVIDERS: ATTEND Otolaryngology
DX: H90.3 Sensorineural hearing loss, bilateral (principal); H93.13 Tinnitus, bilateral
CPT/HCPCS: 70553

== ENCOUNTER 2022-03-27 12:15 | Outpatient (CLI) | payer MEDICARE, OTHER | END 2022-03-27 12:16 | disposition home or self-care (01) | LOC: RAD 12:15 | PROVIDERS: ATTEND Internal Medicine Critical Care Medicine | DX: U07.1 COVID-19 (principal); J12.82 Pneumonia due to coronavirus disease 2019 | CPT/HCPCS: 71046 ==